=== PATIENT | female | born 1960 | race African-American/Black ===

== ENCOUNTER → 2016-09-28 | Outpatient (CLI) | payer MEDICAID ==
--- NOTE | 2016-09-29 17:26 | XCELERA REPORT ---
[address] [address] Lower Extremity Arterial Evaluation Name: WILLOW BARON Age: 56 yrs Gender: Female : 1960 Patient Status: Outpatient Patient Location: Study Date: 09/28/2016 10:03 AM Procedure: A color flow and duplex scan of the lower extremity arteries was performed bilaterally with velocity and waveform anaylsis. Ankle brachial indicies performed. 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 Biphasic to the infrageniculate vessels. The ankle-brachial index is 0.79. 20-49 % stenosis is noted at the infrageniculate level. Moderately dampened PPG's noted. Left Side Arterial Evaluation Normal velocity, waveform and triphasic flow are present, from the Common Femoral artery to the Anterior Tibial artery. Occluded Posterior Tibial artery, no flow distally. The ankle-brachial index is 1.17. Occluded posterior Tibial artery. Mildly dampened PPG's noted. Interpretation Summary Moderate hemodynamically significant lesions in the right lower extremity only, on duplex imaging, at rest. Mild hemodynamically significant lesions in the left lower extremity only, on duplex imaging, at rest. : JAYDEN JAIME > Delonte Gordon
== END ==
LOC: SP 09:30
PROVIDERS: ATTEND Podiatrist Foot Surgery
DX: I70.25 Atherosclerosis of native arteries of other extremities with ulceration (principal)
CPT/HCPCS: 93925

== ENCOUNTER 2016-09-30 11:41 | Emergency (ER) | payer MEDICAID ==
[2016-09-30] MEDS ORDERED: ONDANSETRON 4 MG TAB.RAPDIS PO ONE (11:52)
--- NOTE | 2016-09-30 11:52 | ER Document Report ---
ED Medical Screen (RME) - General Stated Complaint: VOMITING,LEFT SIDE PAIN Time seen by provider: 11:48 Mode of Arrival: Ambulatory Information source: Patient Notes: 56 yo female presents to ed for vomiting and pain in the left flank for 3 months , arthritis pain with blood sugar of 262 TRAVEL OUTSIDE OF THE [place] IN LAST 30 DAYS: No - HPI Onset: Other - 3 months Onset/Duration: Gradual, Persistent Quality of pain: Sharp Severity: Severe Pain Level: 5 Associated Symptoms: Vomiting, Other - flank pain, arthritis diabetes, and vomiting this am Exacerbated by: Movement, Walking Relieved by: Denies Similar symptoms previously: Yes Recently seen / treated by doctor: Yes - Related Data Smoking: Non-smoker Frequency of alcohol use: None Drug Abuse: None Allergies/Adverse Reactions: codeine [Codeine] Allergy (Verified 07/12/16 11:50) hydromorphone HCl [From Dilaudid] Allergy (Verified 07/12/16 11:50) tramadol HCl [From Ultram] Allergy (Verified 07/12/16 11:50) Past Medical History - Past Medical History Cardiac Medical History: Reports: Hx Heart Attack, Hx Hypercholesterolemia, Hx Hypertension Pulmonary Medical History: Reports: Hx Bronchitis, Hx Pneumonia Denies: Hx Tuberculosis Endocrine Medical History: Reports: Hx Diabetes Mellitus Type 2. Denies: Hx Graves' Disease, Hx Hyperthyroidism, Hx Hypothyroidism Renal/ Medical History: Denies: Hx End Stage Renal Disease, Hx Kidney Stones, Hx Peritoneal Dialysis GI Medical History: Reports: Hx Gastroesophageal Reflux Disease. Denies: Hx Crohn's Disease, Hx Hiatal Hernia, Hx Irritable Bowel, Hx Liver Failure, Hx Ulcer Musculoskeltal Medical History: Reports Hx Arthritis - RA, Denies Hx Fibromyalgia, Denies Hx Muscular Dystrophy Traumatic Medical History: Denies: Hx Fractures Past Surgical History: Reports: Hx Cholecystectomy - 2005, Hx Hysterectomy, Hx Oral Surgery, Hx Tonsillectomy - 1969. Denies: Hx Appendectomy, Hx Bowel Surgery, Hx Section, Hx Colostomy, Hx Coronary Artery Bypass Graft, Hx Gastric Bypass Surgery, Hx Herniorrhaphy, Hx Mastectomy, Hx Pacemaker, Hx Tubal Ligation - Immunizations Immunizations up to date: Yes Hx Diphtheria, Pertussis, Tetanus Vaccination: Yes - 2007? Physical Exam - Vital signs Vitals: Temp Pulse Resp BP Pulse Ox 98.0 F 78 20 140/83 H 100 09/30/16 11:45 09/30/16 11:45 09/30/16 11:45 09/30/16 11:45 09/30/16 11:45 Course - Vital Signs Vital signs: Temp Pulse Resp BP Pulse Ox 98.0 F 78 20 140/83 H 100 09/30/16 11:45 09/30/16 11:45 09/30/16 11:45 09/30/16 11:45 09/30/16 11:45
[2016-09-30 12:28] LABS: ABSOLUTE EOSINOPHILS # (AUTO) 0.3 10^3/uL (0.0-0.6); ABSOLUTE LYMPHOCYTES (AUTO) 2.4 10^3/uL (0.5-4.7); ABSOLUTE MONOCYTES (AUTO) 0.4 10^3/uL (0.1-1.4); ABSOLUTE NEUT (AUTO) 5.6 10^3/uL (1.7-8.2); BASOPHILS % (AUTO) 0.4 % (0-2); HEMATOCRIT 39.3 % (36.0-47.0); HEMOGLOBIN 13.1 g/dL (12.0-15.5); LYMPHOCYTES % (AUTO) 27.3 % (13-45); MEAN CORPUSCULAR HEMOGLOBIN 29.6 pg (27.0-33.4); MEAN CORPUSCULAR HGB CONC 33.5 g/dL (32.0-36.0); MEAN CORPUSCULAR VOLUME 89 fl (80-97); MONOCYTES % (AUTO) 4.8 % (3-13); RED BLOOD COUNT 4.44 10^6/uL (3.72-5.28); RED CELL DISTRIBUTION WIDTH 15.5 % (11.5-14.0); SEGMENTED NEUTROPHILS % (AUTO) 64.5 % (42-78); WHITE BLOOD COUNT 8.6 10^3/uL (4.0-10.5)
[2016-09-30 12:39] LABS: APPEARANCE,URINE SLIGHTLY-CLOUDY; BILIRUBIN,URINE NEGATIVE (NEGATIVE); GLUCOSE, URINE >=500 mg/dL (NEGATIVE); KETONES,URINE 20 mg/dL (NEGATIVE); LEUKOCYTE ESTERASE,URINE NEGATIVE (NEGATIVE); NITRITE,URINE NEGATIVE (NEGATIVE); PROTEIN,URINE 30 mg/dL (NEGATIVE); URINE SPECIFIC GRAVITY 1.023; UROBILINOGEN,URINE NEGATIVE mg/dL (<2.0)
[2016-09-30 12:56] LABS: ALANINE AMINOTRANSFERASE 25 U/L (9-52); ALBUMIN 4.5 g/dL (3.5-5.0); ALKALINE PHOSPHATASE 152 U/L (38-126); ANION GAP 14 (5-19); ASPARTATE AMINO TRANSFERASE 18 U/L (14-36); BILIRUBIN,TOTAL 1.1 mg/dL (0.2-1.3); BLOOD UREA NITROGEN 10 mg/dL (7-20); CALCIUM 10.1 mg/dL (8.4-10.2); CARBON DIOXIDE 22 mmol/L (22-30); CHLORIDE 103 mmol/L (98-107); CREATININE RESULT 0.66 mg/dL (0.52-1.25); GLUCOSE 260 mg/dL (75-110); POTASSIUM 4.9 mmol/L (3.6-5.0); SODIUM 139.2 mmol/L (137-145); TOTAL PROTEIN 8.3 g/dL (6.3-8.2)
[2016-09-30] MEDS ORDERED: MAGNESIUM CITRATE 296 ML BOTTLE PO ONE (13:17)
[2016-09-30 13:51] VITALS: BP 151/74
--- NOTE | 2016-09-30 16:25 | ER Document Report ---
ED General - General Chief Complaint: Flank Pain Stated Complaint: VOMITING,LEFT SIDE PAIN Mode of Arrival: Ambulatory TRAVEL OUTSIDE OF THE [place] IN LAST 30 DAYS: No - HPI Patient complains to provider of: left flank pain constipation Notes: Patient has been in the ER multiple times for multiple visits for left flank pain with recent CAT scans performed showing no critical etiology. Patient states plan pain continues on the day this been ongoing for the last 3 weeks. Patient also states unable have a bowel movement. Patient states took stool softener did have small bowel movement this morning however states she feels like she still needs to go. Denies fevers chills nausea vomiting. - Related Data Allergies/Adverse Reactions: codeine [Codeine] Allergy (Verified 09/30/16 11:49) hydromorphone HCl [From Dilaudid] Allergy (Verified 09/30/16 11:49) tramadol HCl [From Ultram] Allergy (Verified 09/30/16 11:49) Past Medical History - General Information source: Patient - Social History Smoking Status: Never Smoker Chew tobacco use (# tins/day): No Frequency of alcohol use: None Drug Abuse: None Family History: Reviewed & Not Pertinent, CAD, CVA, DM, Hyperlipidemia, Hypertension, Malignancy Patient has suicidal ideation: No Patient has homicidal ideation: No - Past Medical History Cardiac Medical History: Reports: Hx Heart Attack, Hx Hypercholesterolemia, Hx Hypertension Pulmonary Medical History: Reports: Hx Bronchitis, Hx Pneumonia Denies: Hx Tuberculosis Endocrine Medical History: Reports: Hx Diabetes Mellitus Type 2. Denies: Hx Graves' Disease, Hx Hyperthyroidism, Hx Hypothyroidism Renal/ Medical History: Denies: Hx End Stage Renal Disease, Hx Kidney Stones, Hx Peritoneal Dialysis GI Medical History: Reports: Hx Gastroesophageal Reflux Disease. Denies: Hx Crohn's Disease, Hx Hiatal Hernia, Hx Irritable Bowel, Hx Liver Failure, Hx Ulcer Musculoskeltal Medical History: Reports Hx Arthritis - RA, Denies Hx Fibromyalgia, Denies Hx Muscular Dystrophy Traumatic Medical History: Denies: Hx Fractures Past Surgical History: Reports: Hx Cholecystectomy - 2005, Hx Hysterectomy, Hx Oral Surgery, Hx Tonsillectomy - 1969. Denies: Hx Appendectomy, Hx Bowel Surgery, Hx Section, Hx Colostomy, Hx Coronary Artery Bypass Graft, Hx Gastric Bypass Surgery, Hx Herniorrhaphy, Hx Mastectomy, Hx Pacemaker, Hx Tubal Ligation - Immunizations Immunizations up to date: Yes Hx Diphtheria, Pertussis, Tetanus Vaccination: Yes - 2007? Hx Pneumococcal Vaccination: 05/27/12 Review of Systems - Review of Systems Constitutional: No symptoms reported EENT: No symptoms reported Cardiovascular: No symptoms reported Respiratory: No symptoms reported Gastrointestinal: No symptoms reported Genitourinary: Flank pain Female Genitourinary: No symptoms reported Musculoskeletal: No symptoms reported Skin: No symptoms reported Hematologic/Lymphatic: No symptoms reported Neurological/Psychological: No symptoms reported -: Yes All other systems reviewed and negative Physical Exam - Vital signs Vitals: Temp Pulse Resp BP Pulse Ox 98.0 F 78 20 140/83 H 100 09/30/16 11:45 09/30/16 11:45 09/30/16 11:45 09/30/16 11:45 09/30/16 11:45 Interpretation: Normal - General General appearance: Appears well, Alert - HEENT Head: Normocephalic, Atraumatic Eyes: Normal Pupils: PERRL - Respiratory Respiratory status: No respiratory distress Chest status: Nontender Breath sounds: Normal Chest palpation: Normal - Cardiovascular Rhythm: Regular Heart sounds: Normal auscultation Murmur: No - Abdominal Inspection: Normal Distension: No distension Bowel sounds: Normal Tenderness: Nontender Organomegaly: No organomegaly - Back Back: Normal, Nontender - Extremities General upper extremity: Normal inspection, Nontender, Normal color, Normal ROM , Normal temperature General lower extremity: Normal inspection, Nontender, Normal color, Normal ROM , Normal temperature, Normal weight bearing. No: Nohelia's sign - Neurological Neuro grossly intact: Yes Cognition: Normal Orientation: AAOx4 [place] Coma Scale Eye Opening: Spontaneous [place] Coma Scale Verbal: Oriented [place] Coma Scale Motor: Obeys Commands [place] Coma Scale Total: 15 Speech: Normal Motor strength normal: LUE, RUE, LLE, RLE Sensory: Normal - Psychological Associated symptoms: Normal affect, Normal mood - Skin Skin Temperature: Warm Skin Moisture: Dry Skin Color: Normal Course - Re-evaluation Re-evalutation: 09/30/16 16:[address] scans were reviewed laboratory shows no critical etiology will give the patient a bottle of mag citrate patient will be discharged home. - Vital Signs Vital signs: Temp Pulse Resp BP Pulse Ox 98.0 F 78 20 140/83 H 100 09/30/16 11:45 09/30/16 11:45 09/30/16 11:45 09/30/16 11:45 09/30/16 11:45 - Laboratory Result Diagrams: 09/30/16 12:00 09/30/16 12:00 Laboratory results interpreted by me: 09/30/16 09/30/16 09/30/16 12:00 12:00 12:00 RDW 15.5 H Glucose 260 H Alkaline Phosphatase 152 H Total Protein 8.3 H Urine Protein 30 H Urine Glucose (UA) >=500 H Urine Ketones 20 H Urine Ascorbic Acid 20 H Discharge - Discharge Clinical Impression: Left sided abdominal pain, Nausea Constipation Qualifiers: Constipation type: unspecified constipation type Qualified Code(s): K59.00 - Constipation, unspecified Condition: Good Disposition: HOME, SELF-CARE Instructions: Abdominal Pain ([facility]), Constipation ([facility]), Nausea or Vomiting, Nonspecific ([facility]) Additional Instructions: Follow-up with your primary care physician. Please drink the bottle of mag citrate that we gave you here today to relieve her constipation. Prescriptions: Ondansetron [Zofran Odt 4 mg Tablet] 1 - 2 tab PO Q4H PRN #15 tab.rapdis PRN Reason: For Nausea/Vomiting
== END 2016-09-30 13:49 | disposition home or self-care (01) ==
LOC: ER 11:41
DX: K59.00 Constipation, unspecified (principal); R11.0 Nausea; R10.9 Unspecified abdominal pain; E78.00 Pure hypercholesterolemia, unspecified; I10 Essential (primary) hypertension; E11.9 Type 2 diabetes mellitus without complications; K21.9 Gastro-esophageal reflux disease without esophagitis; Z88.6 Allergy status to analgesic agent; Z90.49 Acquired absence of other specified parts of digestive tract; Z90.710 Acquired absence of both cervix and uterus; I25.2 Old myocardial infarction
CPT/HCPCS: 99284; 36415; 85025; 80053; 81001; J3490; S0119

== ENCOUNTER 2017-04-22 09:47 | Emergency (ER) | payer MEDICAID ==
[2017-04-22] MEDS ORDERED: ASPIRIN 81 MG TABLET, CHEWABLE PO ONE ×2 (10:21→12:00)
[2017-04-22 11:16] LABS: ABSOLUTE BASOPHILS # (AUTO) 0.1 10^3/uL (0.0-0.2); ABSOLUTE EOSINOPHILS # (AUTO) 0.3 10^3/uL (0.0-0.6); ABSOLUTE LYMPHOCYTES (AUTO) 3.5 10^3/uL (0.5-4.7); ABSOLUTE MONOCYTES (AUTO) 0.6 10^3/uL (0.1-1.4); ABSOLUTE NEUT (AUTO) 7.5 10^3/uL (1.7-8.2); BASOPHILS % (AUTO) 0.9 % (0-2); EOSINOPHILS % (AUTO) 2.4 % (0-6); HEMATOCRIT 37.1 % (36.0-47.0); HGB HCT DIFFERENCE -1.1; LYMPHOCYTES % (AUTO) 29.3 % (13-45); MEAN CORPUSCULAR HEMOGLOBIN 30.5 pg (27.0-33.4); MEAN CORPUSCULAR HGB CONC 32.3 g/dL (32.0-36.0); MEAN CORPUSCULAR VOLUME 94 fl (80-97); MONOCYTES % (AUTO) 4.7 % (3-13); RED BLOOD COUNT 3.93 10^6/uL (3.72-5.28); RED CELL DISTRIBUTION WIDTH 15.2 % (11.5-14.0); SEGMENTED NEUTROPHILS % (AUTO) 62.7 % (42-78)
[2017-04-22 11:27] LABS: ALANINE AMINOTRANSFERASE 20 U/L (9-52); ALBUMIN 4.5 g/dL (3.5-5.0); ALKALINE PHOSPHATASE 157 U/L (38-126); ANION GAP 12 (5-19); ASPARTATE AMINO TRANSFERASE 28 U/L (14-36); BILIRUBIN,DIRECT 0.4 mg/dL (0.0-0.4); BILIRUBIN,TOTAL 0.9 mg/dL (0.2-1.3); BLOOD UREA NITROGEN 14 mg/dL (7-20); CALCIUM 10.2 mg/dL (8.4-10.2); CARBON DIOXIDE 27 mmol/L (22-30); CHLORIDE 104 mmol/L (98-107); CREATINE KINASE 40 U/L (30-135); GLUCOSE 174 mg/dL (75-110); POTASSIUM 4.6 mmol/L (3.6-5.0); SODIUM 142.5 mmol/L (137-145); TOTAL PROTEIN 8.9 g/dL (6.3-8.2)
--- NOTE | 2017-04-22 11:34 | RADIOLOGY REPORT (SQ) ---
EXAM DESCRIPTION: CHEST SINGLE VIEW COMPLETED DATE/TIME: 04/22/2017 11:26 am REASON FOR STUDY: CHEST PAIN COMPARISON: 07/12/2016. EXAM PARAMETERS: NUMBER OF VIEWS: One view. TECHNIQUE: Single frontal radiographic view of the chest acquired. RADIATION DOSE: NA LIMITATIONS: None. FINDINGS: LUNGS AND PLEURA: No opacities, masses or pneumothorax. No pleural effusion. MEDIASTINUM AND HILAR STRUCTURES: No masses. Contour normal. HEART AND VASCULAR STRUCTURES: Heart normal in size. Normal vasculature. BONES: No acute findings. HARDWARE: Clips in the upper abdomen. OTHER: No other significant finding. IMPRESSION: NO ACUTE RADIOGRAPHIC FINDING IN THE CHEST. TECHNICAL DOCUMENTATION: JOB ID: [id number]
[2017-04-22 11:40] LABS: TROPONIN I < 0.012 ng/mL
--- NOTE | 2017-04-22 11:50 | ER Document Report ---
ED General - General Chief Complaint: Chest Pain Stated Complaint: CHEST PAIN Time Seen by Provider: 04/22/17 11:25 Mode of Arrival: Ambulatory Information source: Patient TRAVEL OUTSIDE OF THE [place] IN LAST 30 DAYS: No - HPI Patient complains to provider of: Fleeting chest pain, dry mouth, cough Onset: This morning Onset/Duration: Sudden Quality of pain: Other - Wheezing Severity: Moderate Pain Level: Denies Associated symptoms: Nonproductive cough Exacerbated by: Denies Relieved by: Denies Similar symptoms previously: No Recently seen / treated by doctor: No Notes: Patient is a 57-year-old female with multiple medical problems, who presents to the emergency room complaining of episode of squeezing type chest pain upon awakening this morning lasting approximately 1 minute, she reports a non- productive cough and a dry mouth, no fever, no shortness of breath, no symptoms at present - Related Data Allergies/Adverse Reactions: chocolate flavor Allergy (Verified 04/22/17 09:54) codeine [Codeine] Allergy (Verified 04/22/17 09:54) hydromorphone HCl [From Dilaudid] Allergy (Verified 04/22/17 09:54) tramadol HCl [From Ultram] Allergy (Verified 04/22/17 09:54) Home Medications: Current Home Medications Alendronate Sodium [Fosamax] 70 mg PO ASDIR PRN 04/22/17 [History] Amlodipine Besylate 1 tab PO DAILY 04/22/17 [History] Atorvastatin Calcium 20 mg PO DAILY 04/22/17 [History] Carvedilol [Coreg 25 mg Tablet] 1 tab PO Q12 04/22/17 [History] Celecoxib [Celebrex 200 mg Capsule] 200 mg PO BID 04/22/17 [History] Cetirizine HCl [Zyrtec 10 mg Tablet] 1 tab PO DAILY 04/22/17 [History] Metformin HCl [Metformin HCl ER] 500 mg PO BID 04/22/17 [History] Methotrexate Sodium [Methotrexate] 8 tab PO ASDIR 04/22/17 [History] Oxybutynin Chloride [Ditropan 5 Mg Tablet] 5 mg PO BID 04/22/17 [History] Past Medical History - General Information source: Patient - Social History Smoking Status: Never Smoker Family History: Reviewed & Not Pertinent, CAD, CVA, DM, Hyperlipidemia, Hypertension, Malignancy - Past Medical History Cardiac Medical History: Reports: Hx Heart Attack, Hx Hypercholesterolemia, Hx Hypertension Pulmonary Medical History: Reports: Hx Bronchitis, Hx Pneumonia Denies: Hx Tuberculosis Endocrine Medical History: Reports: Hx Diabetes Mellitus Type 2. Denies: Hx Graves' Disease, Hx Hyperthyroidism, Hx Hypothyroidism Renal/ Medical History: Denies: Hx End Stage Renal Disease, Hx Kidney Stones, Hx Peritoneal Dialysis GI Medical History: Reports: Hx Gastroesophageal Reflux Disease. Denies: Hx Crohn's Disease, Hx Hiatal Hernia, Hx Irritable Bowel, Hx Liver Failure, Hx Ulcer Musculoskeltal Medical History: Reports Hx Arthritis - RA, Denies Hx Fibromyalgia, Denies Hx Muscular Dystrophy Traumatic Medical History: Denies: Hx Fractures Past Surgical History: Reports: Hx Cholecystectomy - 2005, Hx Hysterectomy, Hx Oral Surgery, Hx Tonsillectomy - 1969. Denies: Hx Appendectomy, Hx Bowel Surgery, Hx Section, Hx Colostomy, Hx Coronary Artery Bypass Graft, Hx Gastric Bypass Surgery, Hx Herniorrhaphy, Hx Mastectomy, Hx Pacemaker, Hx Tubal Ligation - Immunizations Immunizations up to date: Yes Hx Diphtheria, Pertussis, Tetanus Vaccination: Yes - 2007? Hx Pneumococcal Vaccination: 05/27/12 Review of Systems - Review of Systems Constitutional: No symptoms reported EENT: See HPI Cardiovascular: See HPI Respiratory: See HPI Gastrointestinal: No symptoms reported Genitourinary: No symptoms reported Female Genitourinary: No symptoms reported Musculoskeletal: No symptoms reported Skin: No symptoms reported Hematologic/Lymphatic: No symptoms reported Neurological/Psychological: No symptoms reported -: Yes All other systems reviewed and negative Physical Exam - Vital signs Vitals: Temp Pulse Resp BP Pulse Ox 98.6 F 62 18 163/79 H 99 04/22/17 09:54 04/22/17 09:54 04/22/17 09:54 04/22/17 09:54 04/22/17 09:54 Interpretation: Hypertensive - General General appearance: Appears well, Alert - HEENT Head: Normocephalic, Atraumatic Eyes: Normal Pupils: PERRL - Respiratory Respiratory status: No respiratory distress Chest status: Tender - Tender to palpate in left anterior chest wall Breath sounds: Normal Chest palpation: Normal - Cardiovascular Rhythm: Regular Heart sounds: Normal auscultation Murmur: No - Abdominal Inspection: Normal Distension: No distension Bowel sounds: Normal Tenderness: Nontender Organomegaly: No organomegaly - Back Back: Normal, Nontender - Extremities General upper extremity: Normal inspection, Nontender, Normal color, Normal ROM , Normal temperature General lower extremity: Normal inspection, Nontender, Normal color, Normal ROM , Normal temperature, Normal weight bearing. No: Nohelia's sign - Neurological Neuro grossly intact: Yes Cognition: Normal Orientation: AAOx4 Jerrica Coma Scale Eye Opening: Spontaneous [place] Coma Scale Verbal: Oriented [place] Coma Scale Motor: Obeys Commands [place] Coma Scale Total: 15 Speech: Normal Motor strength normal: LUE, RUE, LLE, RLE Sensory: Normal - Psychological Associated symptoms: Normal affect, Normal mood - Skin Skin Temperature: Warm Skin Moisture: Dry Skin Color: Normal Course - Re-evaluation Re-evalutation: 04/22/17 19:29 Patient's chest pain was fleeting, lasting only 1 minute when she initially woke up this morning and she has not had chest pain since, evaluation in the emergency room is unremarkable except for elevated blood pressure, she confirms that she recently had a change in her medication, her primary care provider dropped her lisinopril from 40 mg a day to 20 mg a day because her blood pressure was a little on the lower side, since she had markedly elevated blood pressure in the emergency room she was advised to bump her lisinopril back up to 40 mg daily and was given a prescription for this as well, she was advised to follow-up with her primary care provider or return if symptoms worsen, patient acknowledges understanding and agreement with this plan - Vital Signs Vital signs: Temp Pulse Resp BP Pulse Ox 98.6 F 62 18 196/98 H 98 04/22/17 09:54 04/22/17 09:54 04/22/17 13:37 04/22/17 13:37 04/22/17 13:37 - Laboratory Result Diagrams: 04/22/17 10:55 04/22/17 10:55 Laboratory results interpreted by me: 04/22/17 04/22/17 10:55 10:55 WBC 12.0 H RDW 15.2 H Glucose 174 H Alkaline Phosphatase 157 H Total Protein 8.9 H - Diagnostic Test Radiology reviewed: Image reviewed, Reports reviewed - EKG Interpretation by Me EKG shows normal: Sinus rhythm Rate: Bradycardia Voltage: Consistant with LVH Discharge - Discharge Clinical Impression: Chest pain Qualifiers: Chest pain type: unspecified Qualified Code(s): R07.9 - Chest pain, unspecified Hypertension Qualifiers: Hypertension type: unspecified Qualified Code(s): I10 - Essential (primary) hypertension Condition: Stable Disposition: HOME, SELF-CARE Instructions: Chest Pain of Unclear Cause ([facility]) Additional Instructions: Follow up with your primary care provider in one to 2 days. Return to the emergency room immediately if symptoms worsen or any additional concerns. Prescriptions: Lisinopril 40 mg PO DAILY #60 tablet Forms: Elevated Blood Pressure Referrals: NUHA FIGUEROA MD [Primary Care Provider] - Follow up as needed
--- NOTE | 2017-04-22 12:18 | EKG REPORT ---
SEVERITY:- ABNORMAL ECG - SINUS RHYTHM PROBABLE LEFT ATRIAL ABNORMALITY PROBABLE LEFT VENTRICULAR HYPERTROPHY : Confirmed by: Chanelle Walker MD 22-Apr-2017 12:17:48
[2017-04-22] MEDS ORDERED: LISINOPRIL 10 MG TABLET PO ONE (13:38)
[2017-04-22 13:45] VITALS: BP 196/98
[2017-04-22] MEDS ORDERED: CLONIDINE HCL 0.2 MG TABLET PO ONE (14:57)
== END 2017-04-22 16:15 | disposition home or self-care (01) ==
LOC: ER 09:47
DX: R07.9 Chest pain, unspecified (principal); I10 Essential (primary) hypertension; Z79.899 Other long term (current) drug therapy; R05 Cough; R68.2 Dry mouth, unspecified; R00.1 Bradycardia, unspecified; E11.9 Type 2 diabetes mellitus without complications; I25.2 Old myocardial infarction; Z88.5 Allergy status to narcotic agent; Z91.018 Allergy to other foods; Z82.49 Family history of ischemic heart disease and other diseases of the circulatory system
CPT/HCPCS: 93005; 99285; 36415; 82553; 82550; 85025; 80053; 84484; 71010; 93010; J3490 ×2

== ENCOUNTER 2017-04-27 22:05 | Emergency (ER) | payer MEDICAID ==
[2017-04-27] MEDS ORDERED: ASPIRIN 81 MG TABLET, CHEWABLE PO ONE (22:23)
[2017-04-27 22:30] LABS: ABSOLUTE BASOPHILS # (AUTO) 0.1 10^3/uL (0.0-0.2); ABSOLUTE EOSINOPHILS # (AUTO) 0.3 10^3/uL (0.0-0.6); ABSOLUTE LYMPHOCYTES (AUTO) 5.2 10^3/uL (0.5-4.7); ABSOLUTE MONOCYTES (AUTO) 0.8 10^3/uL (0.1-1.4); BASOPHILS % (AUTO) 0.9 % (0-2); EOSINOPHILS % (AUTO) 1.8 % (0-6); HEMATOCRIT 35.8 % (36.0-47.0); HEMOGLOBIN 11.8 g/dL (12.0-15.5); HGB HCT DIFFERENCE -0.4; LYMPHOCYTES % (AUTO) 33.8 % (13-45); MEAN CORPUSCULAR HEMOGLOBIN 31.2 pg (27.0-33.4); MEAN CORPUSCULAR HGB CONC 33.1 g/dL (32.0-36.0); MEAN CORPUSCULAR VOLUME 94 fl (80-97); MONOCYTES % (AUTO) 5.1 % (3-13); RED BLOOD COUNT 3.79 10^6/uL (3.72-5.28); RED CELL DISTRIBUTION WIDTH 15.3 % (11.5-14.0); SEGMENTED NEUTROPHILS % (AUTO) 58.4 % (42-78); WHITE BLOOD COUNT 15.3 10^3/uL (4.0-10.5)
--- NOTE | 2017-04-27 22:42 | ER Document Report ---
ED General - General Chief Complaint: Chest Pain Stated Complaint: CHEST PAIN Time Seen by Provider: 04/27/17 22:38 Notes: Patient is a 57-year-old female presents with complaint of pain along her left ribs. Patient was seen here approximately 5 days ago for similar complaint. Troponin and delta troponin were negative at that time. Pain is easily reproducible palpation. She was discharged home. She does have a history of arthritis and receives and fusions of the special medication for her arthritis. She says the last few days the pain is gotten worse. She said any movement causes severe pain. No history of PE or DVT. She says she does have a history of ID in 2011 but did not receive a cardiac cath. She had a negative cardiac stress test in 2013. She has no other complaints at this time. She denies abdominal pain. No vomiting. TRAVEL OUTSIDE OF THE [place] IN LAST 30 DAYS: No - Related Data Allergies/Adverse Reactions: chocolate flavor Allergy (Verified 04/22/17 09:54) codeine [Codeine] Allergy (Verified 04/22/17 09:54) hydromorphone HCl [From Dilaudid] Allergy (Verified 04/22/17 09:54) tramadol HCl [From Ultram] Allergy (Verified 04/22/17 09:54) Past Medical History - Social History Smoking Status: Unknown if Ever Smoked Frequency of alcohol use: None Drug Abuse: None Family History: Reviewed & Not Pertinent, CAD, CVA, DM, Hyperlipidemia, Hypertension, Malignancy - Past Medical History Cardiac Medical History: Reports: Hx Heart Attack, Hx Hypercholesterolemia, Hx Hypertension Pulmonary Medical History: Reports: Hx Bronchitis, Hx Pneumonia Denies: Hx Tuberculosis Endocrine Medical History: Reports: Hx Diabetes Mellitus Type 2. Denies: Hx Graves' Disease, Hx Hyperthyroidism, Hx Hypothyroidism Renal/ Medical History: Denies: Hx End Stage Renal Disease, Hx Kidney Stones, Hx Peritoneal Dialysis GI Medical History: Reports: Hx Gastroesophageal Reflux Disease. Denies: Hx Crohn's Disease, Hx Hiatal Hernia, Hx Irritable Bowel, Hx Liver Failure, Hx Ulcer Musculoskeltal Medical History: Reports Hx Arthritis - RA, Denies Hx Fibromyalgia, Denies Hx Muscular Dystrophy Traumatic Medical History: Denies: Hx Fractures Past Surgical History: Reports: Hx Cholecystectomy - 2005, Hx Hysterectomy, Hx Oral Surgery, Hx Tonsillectomy - 1969. Denies: Hx Appendectomy, Hx Bowel Surgery, Hx Section, Hx Colostomy, Hx Coronary Artery Bypass Graft, Hx Gastric Bypass Surgery, Hx Herniorrhaphy, Hx Mastectomy, Hx Pacemaker, Hx Tubal Ligation - Immunizations Immunizations up to date: Yes Hx Diphtheria, Pertussis, Tetanus Vaccination: Yes - 2007? Hx Pneumococcal Vaccination: 05/27/12 Review of Systems - Review of Systems Notes: My Normal Review Basic REVIEW OF SYSTEMS: CONSTITUTIONAL : Denies fever, chills, or sweats. Denies recent illness. EENT: Denies eye, ear, throat, or mouth pain or symptoms. Denies nasal or sinus congestion. CARDIOVASCULAR: Left rib pain. RESPIRATORY: Denies cough, cold, or chest congestion. Denies shortness of breath, difficulty breathing, or wheezing. GASTROINTESTINAL: Denies abdominal pain. Denies nausea, vomiting, or diarrhea. Denies constipation. Last BM: MUSCULOSKELETAL: Denies neck or back pain or joint pain or swelling. SKIN: Denies rash or skin lesions. NEUROLOGICAL: Denies altered mental status or loss of consciousness. Denies headache. Denies weakness or paralysis or loss of use of either side. Denies problems with gait or speech. Denies sensory or motor loss. ALL OTHER SYSTEMS REVIEWED AND NEGATIVE. Physical Exam - Vital signs Vitals: Resp Pulse Ox 16 98 04/27/17 22:17 04/27/17 22:17 - Notes Notes: General Appearance: Well nourished, alert, cooperative, no acute distress, no obvious discomfort. Vitals: reviewed, See vital signs table. Head: no swelling or tenderness to the head Eyes: PERRL, EOMI, Conjuctiva clear Mouth: No decreasd moisture Neck: Supple, no neck tenderness Chest wall: Patient has very easily reproducible pain to palpation with palpation of the left chest wall. Pain is mainly in the left lateral ribs and radiates around the ribs both to the back and around to the front. Even a mild touch causes patient to jump and wince with pain. Without touching or pushing on the ribs she is not having significant pain. Lungs: No wheezing, No rales, No rhonci, No accessory muscle use, good air exchange bilaterally. Heart: Normal rate, Regular rythm, No murmur, no rub Abdomen: Normal BS, soft, No rigidity, No abdominal tenderness, No guarding, no rebound, no abdominal masses, no organomegaly Extremities: strength 5/5 in all extremities, good pulses in all extremities, no swelling or tenderness in the extremities, no edema. Skin: warm, dry, appropriate color, no rash Neuro: speech clear, oriented x 3, normal affect, responds appropriately to questions. Course - Re-evaluation Re-evalutation: 04/28/17 03:40 Patient's chest wall is very tender to palpation and the pain I produced with palpation the exact same pain that the patient's been having. The pain seems very musculoskeletal. I encouraged her follow-up with her roll mechanic due to her history of severe arthritis. I do not suspect cardiac disease. She has had the pain now for almost a week. She had a negative troponin delta troponin V days ago. She has a negative troponin again today. EKG does not show any concerning findings. Patient will be discharged home but is encouraged to return to ER if she feels unwell or has further concerns. Patient agrees with plan will be discharged home. Dictation of this chart was performed using voice recognition software; therefore, there may be some unintended grammatical errors. - Vital Signs Vital signs: Temp Pulse Resp BP Pulse Ox 16 142/72 H 99 04/28/17 00:02 04/28/17 00:02 04/28/17 00:02 - Laboratory Result Diagrams: 04/27/17 22:10 04/27/17 23:13 Laboratory results interpreted by me: 04/27/17 04/27/17 22:10 23:13 WBC 15.3 H Hgb 11.8 L Hct 35.8 L RDW 15.3 H Absolute Neutrophils 9.0 H Absolute Lymphocytes 5.2 H Glucose 124 H Alkaline Phosphatase 149 H - EKG Interpretation by Me Additional EKG results interpreted by me: 04/27/17 22:41 EKG is reviewed and interpreted by me. EKG shows normal sinus rhythm with a rate of [address] segment elevation or depression. No ischemic T-wave inversions. IA interval, QRS duration, QTc intervals are within normal range. Old EKG for comparison is from April 22, 2017. Discharge - Discharge Clinical Impression: Rib pain on left side Condition: Good Disposition: HOME, SELF-CARE Additional Instructions: Your EKG and heart enzymes are normal. Your pain is very easily reproduced with movement and with palpation over the ribs. This suggests that the pain is more due to inflammation around the ribs. please follow up with your primary care doctor and roll mechanic closely for reevaluation. please return to the ER if you have fevers, difficulty breathing, vomiting, or feel unwell. Prescriptions: Naproxen [Naprosyn 250 mg Tablet] 250 mg PO BID #14 tablet
--- NOTE | 2017-04-27 22:47 | RADIOLOGY REPORT (SQ) ---
EXAM DESCRIPTION: CHEST SINGLE VIEW COMPLETED DATE/TIME: 04/27/2017 10:35 pm REASON FOR STUDY: chest pain COMPARISON: 04/22/2017 NUMBER OF VIEWS: One view. TECHNIQUE: Single frontal radiographic view of the chest acquired. LIMITATIONS: None. FINDINGS: LUNGS AND PLEURA: No opacities, masses or pneumothorax. No pleural effusion. MEDIASTINUM AND HILAR STRUCTURES: No masses. Contour normal. HEART AND VASCULAR STRUCTURES: Heart enlarged without failure. Normal vasculature. BONES: No acute findings. HARDWARE: None in the chest. OTHER: No other significant finding. IMPRESSION: HEART ENLARGED WITHOUT FAILURE. NO OTHER SIGNIFICANT RADIOGRAPHIC FINDING IN THE CHEST. TECHNICAL DOCUMENTATION: JOB ID: [id number] [employer]- All Rights Reserved
[2017-04-27 23:35] LABS: ALANINE AMINOTRANSFERASE 23 U/L (9-52); ALBUMIN 4.1 g/dL (3.5-5.0); ALKALINE PHOSPHATASE 149 U/L (38-126); ANION GAP 13 (5-19); ASPARTATE AMINO TRANSFERASE 14 U/L (14-36); BILIRUBIN,DIRECT 0.3 mg/dL (0.0-0.4); BILIRUBIN,TOTAL 0.6 mg/dL (0.2-1.3); BLOOD UREA NITROGEN 14 mg/dL (7-20); CARBON DIOXIDE 22 mmol/L (22-30); CHLORIDE 105 mmol/L (98-107); CREATININE RESULT 0.69 mg/dL (0.52-1.25); GLUCOSE 124 mg/dL (75-110); POTASSIUM 4.1 mmol/L (3.6-5.0); SODIUM 139.5 mmol/L (137-145); TOTAL PROTEIN 7.8 g/dL (6.3-8.2)
[2017-04-28] MEDS ORDERED: NAPROXEN 250 MG TABLET PO ONE (00:05)
[2017-04-28 00:18] VITALS: BP 142/72
--- NOTE | 2017-04-28 08:13 | EKG REPORT ---
SEVERITY:- NORMAL ECG - SINUS RHYTHM : Confirmed by: Den Regan MD 28-Apr-2017 08:11:45
== END 2017-04-28 00:42 | disposition home or self-care (01) ==
LOC: ER 22:05
DX: R07.81 Pleurodynia (principal); M06.9 Rheumatoid arthritis, unspecified; Z79.899 Other long term (current) drug therapy; I25.2 Old myocardial infarction; I10 Essential (primary) hypertension; E11.9 Type 2 diabetes mellitus without complications; Z91.048 Other nonmedicinal substance allergy status; Z88.5 Allergy status to narcotic agent; Z82.49 Family history of ischemic heart disease and other diseases of the circulatory system
CPT/HCPCS: 36415; 71010; 80053; 84484; 85025; 93005; 93010; 99285

== ENCOUNTER 2017-05-28 03:22 | Emergency (ER) | payer MEDICAID ==
--- NOTE | 2017-05-28 04:12 | ER Document Report ---
ED Respiratory Problem - General Mode of Arrival: Ambulatory Information source: Patient TRAVEL OUTSIDE OF THE [place] IN LAST 30 DAYS: No - HPI Patient complains to provider of: Cough - General Chief Complaint: Productive Cough Stated Complaint: SORE THROAT Time Seen by Provider: 05/28/17 03:30 Notes: Patient is a 57-year-old female who presents to the emergency department today with complaints of a cough prior to arrival. Patient states she was sleeping soundly, she rolled over to find a "comfortable spot in the bed" when she developed a cough with sputum so she decided to come be evaluated. Patient states she frequently has a cough and this is nothing new for her. (MIKKI LEWIS) - Related Data Allergies/Adverse Reactions: chocolate flavor Allergy (Verified 04/22/17 09:54) codeine [Codeine] Allergy (Verified 04/22/17 09:54) hydromorphone HCl [From Dilaudid] Allergy (Verified 04/22/17 09:54) tramadol HCl [From Ultram] Allergy (Verified 04/22/17 09:54) Past Medical History - General Information source: Patient - Social History Smoking Status: Never Smoker Cigarette use (# per day): No Frequency of alcohol use: None Drug Abuse: None Lives with: Family Family History: Reviewed & Not Pertinent, CAD, CVA, DM, Hyperlipidemia, Hypertension, Malignancy - Past Medical History Cardiac Medical History: Reports: Hx Heart Attack, Hx Hypercholesterolemia, Hx Hypertension Pulmonary Medical History: Reports: Hx Bronchitis, Hx Pneumonia Endocrine Medical History: Reports: Hx Diabetes Mellitus Type 2 GI Medical History: Reports: Hx Gastroesophageal Reflux Disease Musculoskeltal Medical History: Reports Hx Arthritis - RA Past Surgical History: Reports: Hx Cholecystectomy - 2005, Hx Hysterectomy, Hx Oral Surgery, Hx Tonsillectomy - 1969 - Immunizations Immunizations up to date: Yes Hx Diphtheria, Pertussis, Tetanus Vaccination: Yes - 2007? Hx Pneumococcal Vaccination: 05/27/12 Review of Systems - Review of Systems Constitutional: denies: Fever EENT: No symptoms reported Cardiovascular: No symptoms reported Respiratory: See HPI, Cough, Sputum Gastrointestinal: No symptoms reported Genitourinary: No symptoms reported Female Genitourinary: No symptoms reported Musculoskeletal: No symptoms reported Skin: No symptoms reported Hematologic/Lymphatic: No symptoms reported Neurological/Psychological: No symptoms reported -: Yes All other systems reviewed and negative Physical Exam - Vital signs Vitals: Temp Resp BP Pulse Ox 99.6 F 15 138/76 H 98 05/28/17 03:31 05/28/17 03:31 05/28/17 03:31 05/28/17 03:31 - Notes Notes: Physical Exam: General: Alert, appears well. HEENT: Normocephalic. Atraumatic. PERRL. Extraocular movements intact. Oropharynx clear. Neck: Supple. Non-tender. Respiratory: No respiratory distress. Clear and equal breath sounds bilaterally. Cardiovascular: Regular rate and rhythm. Abdominal: Normal Inspection. Non-tender. No distension. Normal Bowel Sounds. Back: Non-tender. No deformity or step off. Extremities: Moves all four extremities. Upper extremities: Normal inspection. Normal ROM. Lower extremities: Normal inspection. No edema. Normal ROM. Neurological: Normal cognition. AAOx4. Normal speech. Psychological: Normal affect. Normal Mood. Skin: Warm. Dry. Normal color. (MIKKI LEWIS) Course - Re-evaluation Re-evalutation: 05/28/17 06:06 Patient presents to the emergency department via EMS with a chief complaint of sore throat and cough. She said she was having trouble getting comfortable in bed she rolled over and began coughing some phlegm came up that she had vomited a little bit. She called EMS on ED arrival she complains of nothing acute. Maybe a little tickle in her throat she does not have any chest pain or pressure she is not short of breath. Vital signs are stable and nonacute. On examination she is well-appearing nontoxic in no distress. HEENT exam is completely normal trachea is midline neck is supple heart rate and rhythm is regular lungs are clear abdomen is soft no peripheral edema or neurological deficits. Strep test is negative. Patient will be discharged home close follow -up with primary care physician and discussed reasons for ED return sooner 05/28/17 06:26 (KADIE DAVE) - Vital Signs Vital signs: Temp Pulse Resp BP Pulse Ox 99.0 F 15 127/79 H 99 05/28/17 06:37 05/28/17 06:02 05/28/17 06:02 05/28/17 06:02 Discharge - Discharge Clinical Impression: Pharyngitis Condition: Stable Disposition: HOME, SELF-CARE Additional Instructions: Sore Throat Sore throats may be caused by viruses, bacteria, or fungi. Most are due to a virus, and must get better on their own. Bacterial sore throats, particularly those due to "strep," need treatment with antibiotics. If an antibiotic is prescribed, be sure to take the medication for a full 10 days. Failure to take the antibiotic can result in complications such as rheumatic fever. Sometimes, an injection of antibiotics is given instead of pills or liquid. This single "shot" is equal in effectiveness to the oral medication. To relieve symptoms, take acetaminophen for pain. Sip clear liquids frequently, or eat popsicles or ice chips. Anesthetic sprays or lozenges may help. Make sure the air in the room is not too dry. Avoid using decongestants or antihistamines. Call the doctor if there is no improvement in two days, or if you have difficulty breathing, increasing throat pain, high fever, rash, or frequent vomiting. Referrals: AUGUSTIN HOFFMAN MD [Primary Care Provider] - Follow up in 3-5 days Scribe Attestation: 05/28/17 06:28 I personally performed the services described in the documentation reviewed the documentation recorded by my scribe in my presence and it accurately and completely records my words and actions (KADIE DAVE) Scribe Documentation - Scribe Written by Trip:: Trip Isaac, 05/28/2017 0537 acting as scribe for :: Isma
[2017-05-28 06:15] VITALS: BP 127/79
[2017-05-28] MEDS ORDERED: ACETAMINOPHEN 325 MG TABLET PO ONE (06:36)
--- NOTE | 2017-05-28 06:39 | RADIOLOGY REPORT (SQ) ---
EXAM DESCRIPTION: CHEST SINGLE VIEW COMPLETED DATE/TIME: 05/28/2017 6:25 am REASON FOR STUDY: cough COMPARISON: Chest x-ray 04/27/2017. EXAM PARAMETERS: NUMBER OF VIEWS: One view. TECHNIQUE: Single frontal radiographic view of the chest acquired. RADIATION DOSE: NA LIMITATIONS: None. FINDINGS: LUNGS AND PLEURA: No consolidation, pneumothorax or pleural effusion. MEDIASTINUM AND HILAR STRUCTURES: No masses. Contour normal. HEART AND VASCULAR STRUCTURES: The heart remains mildly enlarged. No overt vascular congestion. BONES: No acute findings. HARDWARE: None in the chest. IMPRESSION: Stable mild cardiomegaly. Otherwise, no acute radiographic finding in the chest. TECHNICAL DOCUMENTATION: JOB ID: [id number]
== END 2017-05-28 06:20 | disposition home or self-care (01) ==
LOC: ER 03:22
DX: J02.9 Acute pharyngitis, unspecified (principal); R05 Cough; E78.00 Pure hypercholesterolemia, unspecified; I10 Essential (primary) hypertension; E11.9 Type 2 diabetes mellitus without complications; K21.9 Gastro-esophageal reflux disease without esophagitis; I25.2 Old myocardial infarction; Z88.6 Allergy status to analgesic agent; Z90.710 Acquired absence of both cervix and uterus; Z90.49 Acquired absence of other specified parts of digestive tract
CPT/HCPCS: 99284; 87070; 87880; 71010; J3490

== ENCOUNTER 2018-01-14 10:02 | Emergency (ER) | payer MEDICAID ==
--- NOTE | 2018-01-14 10:16 | ER Document Report ---
ED Medical Screen (RME) - General Mode of Arrival: Ambulatory Information source: Patient TRAVEL OUTSIDE OF THE [place] IN LAST 30 DAYS: No <SHIN PARKER - Last Filed: 01/14/18 10:16> <FARRAH GARCIA - Last Filed: 01/14/18 11:23> - General Chief Complaint: Abdominal Pain Stated Complaint: BLOOD SUGAR ISSUES Time Seen by Provider: 01/14/18 10:09 Notes: 57 y.o female with a PMHx of DM, rhumatoid arthritis, HTN, mild NV without stent placement or surgery. She presents to the ED with general malaise and not feeling well. Pt reports that yesterday she was very shaky with a poor appetite. She states that she had not eaten much yesterday other that a little snaking. Patient reports that she took her BGL yesterday which read at 126 which concerned her and she called her doctor who told her replenish her electolytes and to reduce her Lantus from 22units to 18units. Pt states that she was without relief and was told to come here if symptoms did not get better. Pt also notes nausea, urinary frequency and bilateral flank pain. She denies any vomiting. Pt denies any hx of stroke. (SHIN PARKER) - Related Data Allergies/Adverse Reactions: chocolate flavor Allergy (Verified 01/14/18 10:15) codeine [Codeine] Allergy (Verified 01/14/18 10:15) hydromorphone HCl [From Dilaudid] Allergy (Verified 01/14/18 10:15) tramadol HCl [From Ultram] Allergy (Verified 01/14/18 10:15) Past Medical History - General Information source: Patient - Social History Cigarette use (# per day): No Chew tobacco use (# tins/day): No Frequency of alcohol use: None Drug Abuse: None - Past Medical History Cardiac Medical History: Reports: Hx Heart Attack, Hx Hypercholesterolemia, Hx Hypertension Pulmonary Medical History: Reports: Hx Bronchitis, Hx Pneumonia Denies: Hx Tuberculosis Endocrine Medical History: Reports: Hx Diabetes Mellitus Type 2. Denies: Hx Graves' Disease, Hx Hyperthyroidism, Hx Hypothyroidism Renal/ Medical History: Denies: Hx End Stage Renal Disease, Hx Kidney Stones, Hx Peritoneal Dialysis GI Medical History: Reports: Hx Gastroesophageal Reflux Disease. Denies: Hx Crohn's Disease, Hx Hiatal Hernia, Hx Irritable Bowel, Hx Liver Failure, Hx Pancreatitis, Hx Ulcer Musculoskeltal Medical History: Reports Hx Arthritis - RA, Denies Hx Fibromyalgia, Denies Hx Muscular Dystrophy Traumatic Medical History: Denies: Hx Fractures Past Surgical History: Reports: Hx Cholecystectomy - 2005, Hx Hysterectomy, Hx Oral Surgery, Hx Tonsillectomy - 1969. Denies: Hx Appendectomy, Hx Bowel Surgery, Hx Section, Hx Colostomy, Hx Coronary Artery Bypass Graft, Hx Gastric Bypass Surgery, Hx Herniorrhaphy, Hx Mastectomy, Hx Pacemaker, Hx Tubal Ligation - Immunizations Immunizations up to date: Yes Hx Diphtheria, Pertussis, Tetanus Vaccination: Yes - 2007? <SHIN PARKER - Last Filed: 01/14/18 10:16> Review of Systems - Review of Systems Constitutional: See HPI, Malaise - and shaky EENT: No symptoms reported Cardiovascular: No symptoms reported Respiratory: No symptoms reported Gastrointestinal: See HPI, Nausea, Poor appetite. denies: Vomiting Genitourinary: See HPI, Frequency, Flank pain Female Genitourinary: No symptoms reported Musculoskeletal: No symptoms reported Skin: No symptoms reported Hematologic/Lymphatic: No symptoms reported Neurological/Psychological: No symptoms reported -: Yes All other systems reviewed and negative <SHIN PARKER - Last Filed: 01/14/18 10:16> Physical Exam <SHIN PARKER - Last Filed: 01/14/18 10:16> <FARRAH GARCIA - Last Filed: 01/14/18 11:23> - Vital signs Vitals: Temp Pulse Resp BP Pulse Ox 98.7 F 68 16 158/80 H 96 01/14/18 10:07 01/14/18 10:07 01/14/18 10:07 01/14/18 10:07 01/14/18 10:07 - Notes Notes: Physical Exam: General: Alert. HEENT: Normocephalic. Atraumatic. Neck: Supple. Respiratory: No respiratory distress. Abdominal: Normal Inspection. No distension. Back: CVA tenderness to percussion bilaterally. No rash. Extremities: Moves all four extremities. Neurological: Normal cognition. AAOx4. Normal speech. Psychological: Normal affect. Normal Mood. Skin: Warm. Dry. Normal color. (SHIN PARKRE) Course - Laboratory Result Diagrams: 01/14/18 10:35 01/14/18 10:35 <FARRAH GARCIA - Last Filed: 01/14/18 11:23> - Vital Signs Vital signs: Temp Pulse Resp BP Pulse Ox 98.7 F 68 16 158/80 H 96 01/14/18 10:07 01/14/18 10:07 01/14/18 10:07 01/14/18 10:07 01/14/18 10:17 - Laboratory Laboratory results interpreted by me: 01/14/18 01/14/18 10:35 10:35 WBC 11.6 H RDW 15.4 H Absolute Neutrophils 8.8 H Sodium 146.0 H Glucose 141 H Calcium 11.1 H Total Protein 9.2 H Scribe Documentation - Scribe Written by Trip:: Trip May 01/14/18 1027 acting as scribe for :: Lisbeth <SHIN PARKER - Last Filed: 01/14/18 10:16>
[2018-01-14] MEDS ORDERED: ASPIRIN 81 MG TABLET, CHEWABLE PO ONE (10:17)
[2018-01-14 10:50] LABS: ABSOLUTE BASOPHILS # (AUTO) 0.1 10^3/uL (0.0-0.2); ABSOLUTE EOSINOPHILS # (AUTO) 0.3 10^3/uL (0.0-0.6); ABSOLUTE LYMPHOCYTES (AUTO) 1.8 10^3/uL (0.5-4.7); ABSOLUTE MONOCYTES (AUTO) 0.5 10^3/uL (0.1-1.4); ABSOLUTE NEUT (AUTO) 8.8 10^3/uL (1.7-8.2); BASOPHILS % (AUTO) 0.7 % (0-2); EOSINOPHILS % (AUTO) 2.9 % (0-6); HEMATOCRIT 39.1 % (36.0-47.0); HEMOGLOBIN 13.1 g/dL (12.0-15.5); LYMPHOCYTES % (AUTO) 15.5 % (13-45); MEAN CORPUSCULAR HEMOGLOBIN 30.5 pg (27.0-33.4); MEAN CORPUSCULAR HGB CONC 33.4 g/dL (32.0-36.0); MEAN CORPUSCULAR VOLUME 91 fl (80-97); MONOCYTES % (AUTO) 4.5 % (3-13); PLATELET COUNT 291 10^3/uL (150-450); RED BLOOD COUNT 4.28 10^6/uL (3.72-5.28); RED CELL DISTRIBUTION WIDTH 15.4 % (11.5-14.0); SEGMENTED NEUTROPHILS % (AUTO) 76.4 % (42-78); TOTAL CELLS COUNTED % (AUTO) 100 %; WHITE BLOOD COUNT 11.6 10^3/uL (4.0-10.5)
[2018-01-14 11:11] LABS: ALANINE AMINOTRANSFERASE 23 U/L (9-52); ALBUMIN 4.7 g/dL (3.5-5.0); ALKALINE PHOSPHATASE 126 U/L (38-126); ANION GAP 15 (5-19); ASPARTATE AMINO TRANSFERASE 20 U/L (14-36); BILIRUBIN,DIRECT 0.4 mg/dL (0.0-0.4); BILIRUBIN,TOTAL 1.1 mg/dL (0.2-1.3); BLOOD UREA NITROGEN 11 mg/dL (7-20); CALCIUM 11.1 mg/dL (8.4-10.2); CARBON DIOXIDE 25 mmol/L (22-30); CHLORIDE 106 mmol/L (98-107); CREATINE KINASE 45 U/L (30-135); GLUCOSE 141 mg/dL (75-110); LIPASE 34.9 U/L (23-300); POTASSIUM 4.4 mmol/L (3.6-5.0); TOTAL PROTEIN 9.2 g/dL (6.3-8.2)
--- NOTE | 2018-01-14 11:21 | RADIOLOGY REPORT (SQ) ---
EXAM DESCRIPTION: CHEST SINGLE VIEW COMPLETED DATE/TIME: 01/14/2018 11:14 am REASON FOR STUDY: malaise, lack of appetitie, h/o diabetes and [place] COMPARISON: 05/28/2017 EXAM PARAMETERS: NUMBER OF VIEWS: One view. TECHNIQUE: Single frontal radiographic view of the chest acquired. RADIATION DOSE: NA LIMITATIONS: None. FINDINGS: LUNGS AND PLEURA: No opacities, masses or pneumothorax. No pleural effusion. MEDIASTINUM AND HILAR STRUCTURES: No masses. Contour normal. HEART AND VASCULAR STRUCTURES: Heart stable in size. Normal vasculature. BONES: No acute findings. HARDWARE: None in the chest. OTHER: No other significant finding. IMPRESSION: NO ACUTE RADIOGRAPHIC FINDING IN THE CHEST. TECHNICAL DOCUMENTATION: JOB ID: [id number] [employer]- All Rights Reserved Reading location - IP/workstation name: [email or web address]
[2018-01-14 11:23] LABS: CREATINE KINASE MB < 0.22 ng/mL (<4.55); TROPONIN I < 0.012 ng/mL
--- NOTE | 2018-01-14 11:23 | ER Document Report ---
ED General - General Chief Complaint: Abdominal Pain Stated Complaint: BLOOD SUGAR ISSUES Time Seen by Provider: 01/14/18 10:09 Mode of Arrival: Ambulatory Notes: Patient states that over the last several days she has had some back pain and bilateral flank pain. Blood sugar is been a little on the low and that she reports in the 150 range. She prefers to have her blood sugar in the 250 range. States that she feels a lot better when she is at 250. She has talked to her doctor about this and they told her to go ahead and decrease her diabetes medications. Has not really had an appetite. Denies any fever, chills , sweats, chest pain or other issues at this time. TRAVEL OUTSIDE OF THE [place] IN LAST 30 DAYS: No - Related Data Allergies/Adverse Reactions: chocolate flavor Allergy (Verified 01/14/18 10:15) codeine [Codeine] Allergy (Verified 01/14/18 10:15) hydromorphone HCl [From Dilaudid] Allergy (Verified 01/14/18 10:15) tramadol HCl [From Ultram] Allergy (Verified 01/14/18 10:15) Past Medical History - General Information source: Patient - Social History Smoking Status: Never Smoker Cigarette use (# per day): No Chew tobacco use (# tins/day): No Frequency of alcohol use: None Drug Abuse: None Lives with: Alone Family History: Reviewed & Not Pertinent, CAD, CVA, DM, Hyperlipidemia, Hypertension, Malignancy Patient has suicidal ideation: No Patient has homicidal ideation: No - Past Medical History Cardiac Medical History: Reports: Hx Heart Attack, Hx Hypercholesterolemia, Hx Hypertension Pulmonary Medical History: Reports: Hx Bronchitis, Hx Pneumonia Denies: Hx Tuberculosis Endocrine Medical History: Reports: Hx Diabetes Mellitus Type 2. Denies: Hx Graves' Disease, Hx Hyperthyroidism, Hx Hypothyroidism Renal/ Medical History: Denies: Hx End Stage Renal Disease, Hx Kidney Stones, Hx Peritoneal Dialysis GI Medical History: Reports: Hx Gastroesophageal Reflux Disease. Denies: Hx Crohn's Disease, Hx Hiatal Hernia, Hx Irritable Bowel, Hx Liver Failure, Hx Pancreatitis, Hx Ulcer Musculoskeltal Medical History: Reports Hx Arthritis - RA, Denies Hx Fibromyalgia, Denies Hx Muscular Dystrophy Traumatic Medical History: Denies: Hx Fractures Past Surgical History: Reports: Hx Cholecystectomy - 2005, Hx Hysterectomy, Hx Oral Surgery, Hx Tonsillectomy - 1970. Denies: Hx Appendectomy, Hx Bowel Surgery, Hx Section, Hx Colostomy, Hx Coronary Artery Bypass Graft, Hx Gastric Bypass Surgery, Hx Herniorrhaphy, Hx Mastectomy, Hx Pacemaker, Hx Tubal Ligation - Immunizations Immunizations up to date: Yes Hx Diphtheria, Pertussis, Tetanus Vaccination: Yes - 2007? Hx Pneumococcal Vaccination: 05/27/12 Review of Systems - Review of Systems Constitutional: Weakness. denies: Chills, Diaphoresis, Fever, Malaise EENT: No symptoms reported Cardiovascular: No symptoms reported Respiratory: No symptoms reported Gastrointestinal: No symptoms reported, Nausea Genitourinary: No symptoms reported Female Genitourinary: No symptoms reported Musculoskeletal: No symptoms reported, Back pain, Muscle pain, Muscle stiffness Skin: No symptoms reported Hematologic/Lymphatic: No symptoms reported Neurological/Psychological: No symptoms reported Physical Exam - Vital signs Vitals: Temp Pulse Resp BP Pulse Ox 98.7 F 68 16 158/80 H 96 01/14/18 10:07 01/14/18 10:07 01/14/18 10:07 01/14/18 10:07 01/14/18 10:07 Interpretation: Normal - General General appearance: Appears well, Alert - HEENT Head: Normocephalic, Atraumatic Eyes: Normal Pupils: PERRL - Respiratory Respiratory status: No respiratory distress Chest status: Nontender Breath sounds: Normal Chest palpation: Normal - Cardiovascular Rhythm: Regular Heart sounds: Normal auscultation Murmur: No - Abdominal Inspection: Normal Distension: No distension Bowel sounds: Normal Tenderness: Nontender Organomegaly: No organomegaly - Back Back: Normal, Nontender - Extremities General upper extremity: Normal inspection, Nontender, Normal color, Normal ROM , Normal temperature General lower extremity: Normal inspection, Nontender, Normal color, Normal ROM , Normal temperature, Normal weight bearing. No: Nohelia's sign - Neurological Neuro grossly intact: Yes Cognition: Normal Orientation: AAOx4 [place] Coma Scale Eye Opening: Spontaneous [place] Coma Scale Verbal: Oriented [place] Coma Scale Motor: Obeys Commands [place] Coma Scale Total: 15 Speech: Normal Motor strength normal: LUE, RUE, LLE, RLE Sensory: Normal - Psychological Associated symptoms: Normal affect, Normal mood - Skin Skin Temperature: Warm Skin Moisture: Dry Skin Color: Normal Course - Re-evaluation Re-evalutation: 01/14/18 15:31 Patient has been observed here for over 5 hours. Second troponin negative. EKG unremarkable. Labs fairly unremarkable with exception of a mildly elevated leukocytosis. Chest x-ray performed which was negative. CT of the abdomen and pelvis was performed which did not show any acute pathology. Consulted the hospitalist with regards to the benefits of admission for observation however she does not necessarily meet criteria for admission at this time. I gave her some fluids and some Toradol and she feels a little bit better. I have explained to her that these workups can often times take an extensive period of time to figure out. We have ruled out most of the major emergencies at this time. CT scan does not show any major concerns for an aneurysm. Does not appear to be any major cardiac issues going on. Blood sugar is completely within acceptable range at this time. Patient has been encouraged to follow-up with her regular doctor just as soon as possible for repeat evaluation. If her symptoms get worse over the next 24 hours she is instructed to return to the emergency department. Patient verbalized understanding of these instructions and we will discharge at this time in stable condition. - Vital Signs Vital signs: Temp Pulse Resp BP Pulse Ox 98.7 F 68 14 142/75 H 99 01/14/18 10:07 01/14/18 10:07 01/14/18 14:04 01/14/18 14:04 01/14/18 14:04 - Laboratory Result Diagrams: 01/14/18 10:35 01/14/18 10:35 Laboratory results interpreted by me: 01/14/18 01/14/18 01/14/18 10:35 10:35 11:20 WBC 11.6 H RDW 15.4 H Absolute Neutrophils 8.8 H Sodium 146.0 H Glucose 141 H Calcium 11.1 H Total Protein 9.2 H Urine Glucose (UA) >=500 H Urine Ketones 20 H Discharge - Discharge Clinical Impression: Back pain Qualifiers: Back pain location: back pain in unspecified location Chronicity: unspecified Back pain laterality: bilateral Qualified Code(s): M54.9 - Dorsalgia, unspecified Condition: Good Disposition: HOME, SELF-CARE Instructions: Low Back Pain ([facility]) Additional Instructions: Please follow-up with your regular doctor soon as possible for repeat evaluation. If your symptoms get worse over the next 24 hours then please return for repeat evaluation. We did not find anything major that was wrong today however these symptoms often times require repeat evaluations on a regular basis until something near their gets better or things get worse. Continue to take all of your regular medications as prescribed. Referrals: AUGUSTIN HOFFMAN MD [Primary Care Provider] - Follow up as needed
--- NOTE | 2018-01-14 11:49 | RADIOLOGY REPORT (SQ) ---
EXAM DESCRIPTION: CT ABD/PELVIS NO ORAL OR IV COMPLETED DATE/TIME: 01/14/2018 11:42 am REASON FOR STUDY: bilateral flank pain COMPARISON: 07/16/2016 TECHNIQUE: CT scan of the abdomen and pelvis performed without intravenous or oral contrast. Images reviewed with lung, soft tissue, and bone windows. Reconstructed coronal and sagittal MPR images revi ewed. All images stored on PACS. All CT scanners at this facility use dose modulation, iterative reconstruction, and/or weight based d osing when appropriate to reduce radiation dose to as low as reasonably achievable (ALARA). [facility]: Dose Right [facility]: CareDose [facility]: Dose Right [facility]: Teradose 4D [facility]: Smart [employer] RADIATION DOSE: CT Rad equipment meets quality standard of care and radiation dose reduction techniq ues were employed. CTDIvol: 18.4 mGy. DLP: 930 mGy-cm.mGy. LIMITATIONS: None. FINDINGS: LOWER CHEST: No significant findings. No nodules or infiltrates. NON-CONTRASTED LIVER, SPLEEN, ADRENALS: Evaluation limited by lack of IV contrast. No identified sign ificant masses. PANCREAS: No masses. No peripancreatic inflammatory changes. GALLBLADDER: Surgically absent. RIGHT KIDNEY AND URETER: No suspicious masses. Assessment limited by lack of IV contrast. No signif icant calcifications. No hydronephrosis or hydroureter. LEFT KIDNEY AND URETER: No suspicious masses. Assessment limited by lack of IV contrast. No signifi cant calcifications. No hydronephrosis or hydroureter. AORTA AND RETROPERITONEUM: No aneurysm. No retroperitoneal masses or adenopathy. BOWEL AND PERITONEAL CAVITY: No obvious masses or inflammatory changes. No free fluid. APPENDIX: Normal. PELVIS, BLADDER, AND ABDOMINAL WALL:Stable fat containing ventral wall hernias. No abnormal masses. No free fluid. Bladder normal. BONES: No significant findings. OTHER: No other significant finding. IMPRESSION: NO SIGNIFICANT OR ACUTE PROCESS IN THE ABDOMEN OR PELVIS. NO SIGNIFICANT CHANGE FROM UT IOR STUDY. COMMENT: Quality ID # [id number]: Final reports with documentation of one or more dose reduction techniques (e.g., Automated exposure control, adjustment of the mA and/or kV according to patient size, use of iterative reconstruction technique) TECHNICAL DOCUMENTATION: JOB ID: [id number] [employer]- All Rights Reserved Reading location - IP/workstation name: [email or web address]
[2018-01-14 11:51] LABS: APPEARANCE,URINE SLIGHTLY-CLOUDY; BILIRUBIN,URINE NEGATIVE (NEGATIVE); COLOR,URINE YELLOW; GLUCOSE, URINE >=500 mg/dL (NEGATIVE); KETONES,URINE 20 mg/dL (NEGATIVE); LEUKOCYTE ESTERASE,URINE NEGATIVE (NEGATIVE); NITRITE,URINE NEGATIVE (NEGATIVE); PROTEIN,URINE NEGATIVE (NEGATIVE); URINE SPECIFIC GRAVITY 1.027; UROBILINOGEN,URINE NEGATIVE mg/dL (<2.0)
[2018-01-14] MEDS ORDERED: KETOROLAC TROMETHAMINE INJ/PF 30 MG/1 ML SDV IV ONE (13:03)
[2018-01-14] MEDS ORDERED: NORMAL SALINE 1000 ML 1,000 ML IV ONE (13:04)
[2018-01-14 15:45] VITALS: BP 143/83
--- NOTE | 2018-01-15 09:40 | EKG REPORT ---
SEVERITY:- ABNORMAL ECG - SINUS RHYTHM PROBABLE LEFT VENTRICULAR HYPERTROPHY : Confirmed by: Alyse Fernández 15-Jan-2018 09:39:14
== END 2018-01-14 15:54 | disposition home or self-care (01) ==
LOC: ER 10:02
DX: M54.9 Dorsalgia, unspecified (principal); R10.9 Unspecified abdominal pain; R63.0 Anorexia; E11.9 Type 2 diabetes mellitus without complications; I25.2 Old myocardial infarction; I10 Essential (primary) hypertension
CPT/HCPCS: 93005; 99285; 96361; 96374; 36415; 82553; 82550; 83690; 85025; 80053; 81001; 84484; 71045; 74176; 93010; J1885; J7030

== ENCOUNTER 2019-01-16 13:52 | Emergency (ER) | payer MEDICAID ==
[2019-01-16] MEDS ORDERED: ACETAMINOPHEN 325 MG TABLET PO ONE (15:12)
--- NOTE | 2019-01-16 15:15 | ER Document Report ---
ED Medical Screen (RME) - General Chief Complaint: Headache Stated Complaint: HEADACHE Time Seen by Provider: 01/16/19 15:02 Primary Care Provider: AUGUSTIN HOFFMAN MD [Primary Care Provider] - Follow up as needed Information source: Patient TRAVEL OUTSIDE OF THE [place] IN LAST 30 DAYS: No - HPI Patient complains to provider of: HEADACHE, WEAKNESS Notes: 01/16/19 15:13 Patient here with multiple complaints. Patient states that she has been having a headache intermittently for the last several days still gotten worse today. She does complain of some pain in her cheeks. She also developed a worsening headache with photophobia today. She states when she woke up this morning she felt like she could not lift her left arm up. This seems to have improved. She is not on blood thinning medications. No injury. No fevers. Exam No distress, nontoxic-appearing. Lungs are clear and equal throughout. Heart sounds are normal. Nonfocal neurological exam with no pronator drift or unilateral weakness. Cranial nerves II through XII grossly intact. Plan CBC, CMP, troponin, coags, EKG, head CT, chest x-ray, urinalysis. An initial examination was made on the patient as part of the triage process, and it was determined a more comprehensive evaluation was necessary. Initial labs were ordered and patient was transferred to another provider in the ED who assumed care and finished evaluation and plan. - Related Data Allergies/Adverse Reactions: chocolate flavor Allergy (Verified 01/14/18 10:15) codeine [Codeine] Allergy (Verified 01/14/18 10:15) hydromorphone HCl [From Dilaudid] Allergy (Verified 01/14/18 10:15) tramadol HCl [From Ultram] Allergy (Verified 01/14/18 10:15) Past Medical History - Past Medical History Cardiac Medical History: Reports: Hx Heart Attack, Hx Hypercholesterolemia, Hx Hypertension Pulmonary Medical History: Reports: Hx Bronchitis, Hx Pneumonia Denies: Hx Tuberculosis Endocrine Medical History: Reports: Hx Diabetes Mellitus Type 2. Denies: Hx Graves' Disease, Hx Hyperthyroidism, Hx Hypothyroidism Renal/ Medical History: Denies: Hx End Stage Renal Disease, Hx Kidney Stones, Hx Peritoneal Dialysis GI Medical History: Reports: Hx Gastroesophageal Reflux Disease. Denies: Hx Crohn's Disease, Hx Hiatal Hernia, Hx Irritable Bowel, Hx Liver Failure, Hx Pancreatitis, Hx Ulcer Musculoskeltal Medical History: Reports Hx Arthritis - RA, Denies Hx Fibromyalgia, Denies Hx Muscular Dystrophy Traumatic Medical History: Denies: Hx Fractures Past Surgical History: Reports: Hx Cholecystectomy - 2005, Hx Hysterectomy, Hx Oral Surgery, Hx Tonsillectomy - 1969. Denies: Hx Appendectomy, Hx Bowel Surgery, Hx Section, Hx Colostomy, Hx Coronary Artery Bypass Graft, Hx Gastric Bypass Surgery, Hx Herniorrhaphy, Hx Mastectomy, Hx Pacemaker, Hx Tubal Ligation - Immunizations Immunizations up to date: Yes Hx Diphtheria, Pertussis, Tetanus Vaccination: Yes - 2007? Physical Exam - Vital signs Vitals: Temp Pulse Resp BP Pulse Ox 99 F 85 18 119/72 96 01/16/19 13:55 01/16/19 13:55 01/16/19 13:55 01/16/19 13:55 01/16/19 13:55 Course - Vital Signs Vital signs: Temp Pulse Resp BP Pulse Ox 99 F 85 18 119/72 96 01/16/19 13:55 01/16/19 13:55 01/16/19 13:55 01/16/19 13:55 01/16/19 13:55 Doctor's Discharge - Discharge Referrals: AUGUSTIN HOFFMAN MD [Primary Care Provider] - Follow up as needed
--- NOTE | 2019-01-16 15:32 | RADIOLOGY REPORT (SQ) ---
EXAM DESCRIPTION: CT HEAD WITHOUT COMPLETED DATE/TIME: 01/16/2019 3:21 pm REASON FOR STUDY: HEADACHE, LEFT ARM WEAKNESS COMPARISON: 09/21/2015 TECHNIQUE: Axial images acquired through the brain without intravenous contrast. Images reviewed wi th bone, brain and subdural windows. Additional sagittal and coronal reconstructions were generated. Images stored on PACS. All CT scanners at this facility use dose modulation, iterative reconstruction, and/or weight based d osing when appropriate to reduce radiation dose to as low as reasonably achievable (ALARA). [facility]: Dose Right [facility]: CareDose [facility]: Dose Right [facility]: Teradose 4D [facility]: [employer] RADIATION DOSE: CT Rad equipment meets quality standard of care and radiation dose reduction techniq ues were employed. CTDIvol: 53.2 mGy. DLP: 964 mGy-cm. mGy. LIMITATIONS: None. FINDINGS: VENTRICLES: Normal size and contour. CEREBRUM: No masses. No hemorrhage. No midline shift. No evidence for acute infarction. Normal gra y/white matter differentiation. No areas of low density in the white matter. CEREBELLUM: No masses. No hemorrhage. No alteration of density. No evidence for acute infarction. EXTRAAXIAL SPACES: No fluid collections. No masses. ORBITS AND GLOBE: No intra- or extraconal masses. Normal contour of globe without masses. CALVARIUM: No fracture. PARANASAL SINUSES: There is complete opacification of the right maxillary sinus. There is a large ai r-fluid level in the left maxillary sinus. Some of the ethmoid air cells are opacified. SOFT TISSUES: No mass or hematoma. OTHER: No other significant finding. IMPRESSION: Sinus disease. No acute intracranial imaging findings. EVIDENCE OF ACUTE STROKE: NO. COMMENT: Quality ID # 436: Final reports with documentation of one or more dose reduction techniques (e.g., Automated exposure control, adjustment of the mA and/or kV according to patient size, use of iterative reconstruction technique) TECHNICAL DOCUMENTATION: JOB ID: [id number] [employer]- All Rights Reserved Reading location - IP/workstation name: [email or web address]
--- NOTE | 2019-01-16 15:35 | RADIOLOGY REPORT (SQ) ---
EXAM DESCRIPTION: CHEST SINGLE VIEW COMPLETED DATE/TIME: 01/16/2019 3:27 pm REASON FOR STUDY: HEADACHE, LEFT ARM WEAKNESS COMPARISON: 04/22/2017. EXAM PARAMETERS: NUMBER OF VIEWS: One view. TECHNIQUE: Single frontal radiographic view of the chest acquired. RADIATION DOSE: NA LIMITATIONS: None. FINDINGS: LUNGS AND PLEURA: No opacities, masses or pneumothorax. No pleural effusion. MEDIASTINUM AND HILAR STRUCTURES: No masses. Contour normal. HEART AND VASCULAR STRUCTURES: Heart upper limits of normal in size. Normal vasculature. BONES: No acute findings. HARDWARE: None in the chest. Clips in the upper abdomen. OTHER: No other significant finding. IMPRESSION: NO ACUTE RADIOGRAPHIC FINDING IN THE CHEST. TECHNICAL DOCUMENTATION: JOB ID: [id number] [employer]- All Rights Reserved Reading location - IP/workstation name: [email or web address]
[2019-01-16] MEDS ORDERED: ACETAMINOPHEN 325 MG TABLET ONE (15:43)
[2019-01-16 16:16] LABS: INTERNATIONAL RATION (INR) 1.03
[2019-01-16 16:19] LABS: ABSOLUTE BASOPHILS # (AUTO) 0.1 10^3/uL (0.0-0.2); ABSOLUTE EOSINOPHILS # (AUTO) 0.1 10^3/uL (0.0-0.6); ABSOLUTE LYMPHOCYTES (AUTO) 1.6 10^3/uL (0.5-4.7); ABSOLUTE MONOCYTES (AUTO) 0.9 10^3/uL (0.1-1.4); BASOPHILS % (AUTO) 0.7 % (0-2); EOSINOPHILS % (AUTO) 0.6 % (0-6); HEMATOCRIT 36.7 % (36.0-47.0); HEMOGLOBIN 12.2 g/dL (12.0-15.5); LYMPHOCYTES % (AUTO) 10.5 % (13-45); MEAN CORPUSCULAR HEMOGLOBIN 30.7 pg (27.0-33.4); MEAN CORPUSCULAR HGB CONC 33.2 g/dL (32.0-36.0); MEAN CORPUSCULAR VOLUME 93 fl (80-97); MONOCYTES % (AUTO) 5.6 % (3-13); PLATELET COUNT 337 10^3/uL (150-450); RED BLOOD COUNT 3.97 10^6/uL (3.72-5.28); RED CELL DISTRIBUTION WIDTH 14.3 % (11.5-14.0); SEGMENTED NEUTROPHILS % (AUTO) 82.6 % (42-78); TOTAL CELLS COUNTED % (AUTO) 100 %; WHITE BLOOD COUNT 15.8 10^3/uL (4.0-10.5)
[2019-01-16 16:38] LABS: ALANINE AMINOTRANSFERASE 23 U/L (9-52); ALBUMIN 4.1 g/dL (3.5-5.0); ALKALINE PHOSPHATASE 200 U/L (38-126); ANION GAP 12 (5-19); ASPARTATE AMINO TRANSFERASE 24 U/L (14-36); BILIRUBIN,DIRECT 0.5 mg/dL (0.0-0.4); BILIRUBIN,TOTAL 1.3 mg/dL (0.2-1.3); BLOOD UREA NITROGEN 13 mg/dL (7-20); CALCIUM 11.6 mg/dL (8.4-10.2); CARBON DIOXIDE 23 mmol/L (22-30); CHLORIDE 104 mmol/L (98-107); GLUCOSE 213 mg/dL (75-110); POTASSIUM 4.9 mmol/L (3.6-5.0); SODIUM 138.9 mmol/L (137-145); TOTAL PROTEIN 8.1 g/dL (6.3-8.2)
--- NOTE | 2019-01-16 17:28 | EKG REPORT ---
SEVERITY:- ABNORMAL ECG - SINUS RHYTHM BIATRIAL ABNORMALITIES PROBABLE LEFT VENTRICULAR HYPERTROPHY : Confirmed by: Den Regan MD 16-Jan-2019 17:27:39
[2019-01-16] MEDS: IBUPROFEN 600 MG TABLET PO ONE ×2 (18:20→18:23)
[2019-01-16 18:21] LABS: APPEARANCE,URINE CLEAR; BILIRUBIN,URINE NEGATIVE (NEGATIVE); COLOR,URINE YELLOW; GLUCOSE, URINE >=500 mg/dL (NEGATIVE); KETONES,URINE TRACE mg/dL (NEGATIVE); LEUKOCYTE ESTERASE,URINE NEGATIVE (NEGATIVE); NITRITE,URINE NEGATIVE (NEGATIVE); PROTEIN,URINE NEGATIVE (NEGATIVE); URINE SPECIFIC GRAVITY 1.022
[2019-01-16 20:08] LABS: C-REACTIVE PROTEIN 234.9 mg/L (<10.0)
[2019-01-16] MEDS ORDERED: PREDNISONE 20 MG TABLET PO ONE ×2 (20:08→20:11)
[2019-01-16] MEDS ORDERED: METOCLOPRAMIDE HCL INJ/PF 10 MG/2 ML SDV IM ONE (20:08)
--- NOTE | 2019-01-16 20:17 | ER Document Report ---
ED General - General Chief Complaint: Headache Stated Complaint: HEADACHE Time Seen by Provider: 01/16/19 15:02 Primary Care Provider: PACHECO NAIR MD [ACTIVE STAFF] - Follow up tomorrow (AT 9AM. PLEASE DO NOT MISS THIS APPOINTMENT! ) AUGUSTIN HOFFMAN MD [Primary Care Provider] - Follow up as needed Notes: Patient is a 58-year-old female with past medical history of essential hypertension, morbid obesity, rheumatoid arthritis, diabetes with insulin dependence who presents with 2 days of intermittent headache, blurring of vision and jaw claudication. The patient reports that her symptoms started gradually, have become progressively severe over that time. Describes the pain as being located over her bilateral temporal regions worse in the left versus the right has a throbbing, aching, constant pain. Worsened by lights. 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 She also notes that she is had some jaw claudication with pain with chewing. She did try taking Percocet today with no improvement. She has not seen her primary care physician regarding today's concerns. Apparently in triage she complained of some left upper extremity heaviness which she denied to me. Specifically denies any focal weakness, numbness or confusion. No chest pain or shortness of breath. No history of similar symptoms in the past. TRAVEL OUTSIDE OF THE [place] IN LAST 30 DAYS: No - Related Data Allergies/Adverse Reactions: chocolate flavor Allergy (Verified 01/14/18 10:15) codeine [Codeine] Allergy (Verified 01/14/18 10:15) hydromorphone HCl [From Dilaudid] Allergy (Verified 01/14/18 10:15) tramadol HCl [From Ultram] Allergy (Verified 01/14/18 10:15) Past Medical History - General Information source: Patient - Social History Smoking Status: Never Smoker Frequency of alcohol use: None Drug Abuse: None Lives with: Family Family History: Reviewed & Not Pertinent, CAD, CVA, DM, Hyperlipidemia, Hypertension, Malignancy Patient has suicidal ideation: No Patient has homicidal ideation: No - Past Medical History Cardiac Medical History: Reports: Hx Heart Attack, Hx Hypercholesterolemia, Hx Hypertension Pulmonary Medical History: Reports: Hx Bronchitis, Hx Pneumonia Denies: Hx Tuberculosis Endocrine Medical History: Reports: Hx Diabetes Mellitus Type 2. Denies: Hx Graves' Disease, Hx Hyperthyroidism, Hx Hypothyroidism Renal/ Medical History: Denies: Hx End Stage Renal Disease, Hx Kidney Stones, Hx Peritoneal Dialysis GI Medical History: Reports: Hx Gastroesophageal Reflux Disease. Denies: Hx Crohn's Disease, Hx Hiatal Hernia, Hx Irritable Bowel, Hx Liver Failure, Hx Pancreatitis, Hx Ulcer Musculoskeletal Medical History: Reports Hx Arthritis - RA, Denies Hx Fibromyalgia, Denies Hx Muscular Dystrophy Traumatic Medical History: Denies: Hx Fractures Past Surgical History: Reports: Hx Cholecystectomy - 2005, Hx Hysterectomy, Hx Oral Surgery, Hx Tonsillectomy - 1969. Denies: Hx Appendectomy, Hx Bowel Surgery, Hx Section, Hx Colostomy, Hx Coronary Artery Bypass Graft, Hx Gastric Bypass Surgery, Hx Herniorrhaphy, Hx Mastectomy, Hx Pacemaker, Hx Tubal Ligation - Immunizations Immunizations up to date: Yes Hx Diphtheria, Pertussis, Tetanus Vaccination: Yes - 2007? Hx Pneumococcal Vaccination: 05/27/12 Review of Systems - Review of Systems Notes: Constitutional: Negative for fever. HENT: Negative for sore throat. Eyes: Positive for visual changes. Cardiovascular: Negative for chest pain. Respiratory: Negative for shortness of breath. Gastrointestinal: Negative for abdominal pain, vomiting or diarrhea. Genitourinary: Negative for dysuria. Musculoskeletal: Negative for back pain. Skin: Negative for rash. Neurological: Positive for headaches 10 point ROS negative except as marked above and in HPI. Physical Exam - Vital signs Vitals: Temp Pulse Resp BP Pulse Ox 99 F 85 18 119/72 96 01/16/19 13:55 01/16/19 13:55 01/16/19 13:55 01/16/19 13:55 01/16/19 13:55 Interpretation: Normal Notes: PHYSICAL EXAMINATION: GENERAL: Appears older than stated age, in no acute distress HEAD: Atraumatic, normocephalic. Exquisite pain on palpation of the bilateral temporal regions. EYES: Pupils equal round and reactive to light, extraocular movements intact, sclera anicteric, conjunctiva are normal. ENT: nares patent, oropharynx clear without exudates. Moist mucous membranes. NECK: Normal range of motion, supple without lymphadenopathy LUNGS: Breath sounds clear to auscultation bilaterally and equal. No wheezes rales or rhonchi. HEART: Regular rate and rhythm without murmurs ABDOMEN: Soft, nontender, normoactive bowel sounds. No guarding, no rebound. No masses appreciated. EXTREMITIES: Normal range of motion, no pitting or edema. No cyanosis. NEUROLOGICAL: Face symmetric. Tongue protrudes midline. Extraocular motions intact. Pupils are 2 mm and equally reactive. Normal speech. 5 out of 5 strength in both the distal and proximal upper and lower extremities bilaterally. Sensation is grossly intact throughout. Finger to nose testing normal. Pronator drift normal. PSYCH: Normal mood, normal affect. SKIN: Warm, Dry, normal turgor, no rashes or lesions noted. Course - Re-evaluation Re-evalutation: 01/16/19 20:15 Patient presents with a clinical picture very worrisome for giant cell arteritis. She is presenting with jaw claudication, bitemporal pain with associated headache worsening over the last 2 days as well as increased blurring vision. 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 In triage she apparently complained of some left arm heaviness but denied it to the provider shortly after stating it based on his note. To be she denies any other complaints at this time other than headache, blurring of vision and jaw pain. She denies any focal weakness or numbness. The pain is throbbing, severe, constant. Not improved or worsened by anything. She did try Percocet and Excedrin Migraine headache at home with no relief. States the headache was gradual in onset and has been worsening since that time over the last 48 hours. I am very worried that the patient has giant cell arteritis given her advanced age, temporal pain, blurring of her vision, jaw claudication as well as ESR of 100 and a CRP of 234. I directly discussed her case with Dr. Nair the pet sitter promotion producer who will see her in the office tomorrow. Obviously there is concern for the patient becoming hyperglycemic in the setting of diabet es with insulin dependence. I have informed the patient of this concern and the need to contact her industrial waste treatment technician tomorrow for assistance with dosing management of her insulin in the setting of needing high-dose steroids. She will be seen in the office by Dr. Nair at 9 AM so I will not write a prescription at this time but rather await his recommendation for ongoing steroid nursing versus possible pulse dosing as an inpatient if exam tomorrow in the office is concerning. - Vital Signs Vital signs: Temp Pulse Resp BP Pulse Ox 98.9 F 93 16 127/76 H 97 01/16/19 20:43 01/16/19 20:43 01/16/19 20:43 01/16/19 20:43 01/16/19 20:43 - Laboratory Result Diagrams: 01/16/19 15:47 01/16/19 15:47 Laboratory results interpreted by me: 01/16/19 01/16/19 01/16/19 15:47 15:47 15:47 WBC 15.8 H RDW 14.3 H Seg Neutrophils % 82.6 H Lymphocytes % 10.5 L Absolute Neutrophils 13.0 H ESR Glucose 213 H Calcium 11.6 H Direct Bilirubin 0.5 H Alkaline Phosphatase 200 H C-Reactive Protein 234.9 H Urine Glucose (UA) Urine Ketones Urine Urobilinogen 01/16/19 01/16/19 15:47 17:57 WBC RDW Seg Neutrophils % Lymphocytes % Absolute Neutrophils ESR 100 H Glucose Calcium Direct Bilirubin Alkaline Phosphatase C-Reactive Protein Urine Glucose (UA) >=500 H Urine Ketones TRACE H Urine Urobilinogen 2.0 H - Diagnostic Test Radiology reviewed: Image reviewed, Reports reviewed Radiology results interpreted by me: 01/16/19 20:17 CT head: No acute intracranial bleed or mass - EKG Interpretation by Me Additional EKG results interpreted by me: 01/16/19 20:18 Sinus rhythm, rate 86. LVH. No ST elevations or depressions. QTC 421. Discharge - Discharge Clinical Impression: Giant cell arteritis Diabetes mellitus Qualifiers: Diabetes mellitus type: type 2 Diabetes mellitus rodent exterminator insulin use: with residential use Diabetes mellitus complication status: without complication Qualified Code(s): E11.9 - Type 2 diabetes mellitus without complications Condition: Stable Disposition: HOME, SELF-CARE Additional Instructions: Your symptoms are very worrisome for something called giant cell arteritis. You have been given the first dose of steroids here in the emergency department. The dose has been 80 mg after a conversation with the pet sitter will see you tomorrow Dr. Nair. He will see you at 9 AM in the morning. Please do not miss this appointment. You will likely need to have a consultation with your industrial waste treatment technician for management of your high blood sugars in the context of needing steroids particularly at such high dosing. Please return to the emergency department immediately if develop worsening headache, persistent vomiting, focal weakness, numbness, confusion or any other symptoms that are worrisome to you. Based on your exam tomorrow you will be written a prescription for steroids by Dr. Nair or potentially require hospitalization for IV steroids Referrals: AUGUSTIN HOFFMAN MD [Primary Care Provider] - Follow up as needed PACHECO NAIR MD [ACTIVE STAFF] - Follow up tomorrow (AT 9AM. PLEASE DO NOT MISS THIS APPOINTMENT! )
[2019-01-16 20:43] VITALS: BP 127/76
== END 2019-01-16 21:07 | disposition home or self-care (01) ==
LOC: ER 13:52
DX: M31.6 Other giant cell arteritis (principal); E11.9 Type 2 diabetes mellitus without complications; R51 Headache; H53.8 Other visual disturbances; R68.84 Jaw pain; Z79.4 Long term (current) use of insulin; Z79.899 Other long term (current) drug therapy; I10 Essential (primary) hypertension
CPT/HCPCS: 93005; 99285; 96372; 36415; 85025; 85652; 85610; 85730; 86140; 80053; 81001; 84484; 71045; 70450; 93010; J3490; J2765; J7512

== ENCOUNTER 2019-01-30 13:00 | Day surgery (SDC) | payer MEDICAID ==
[~2019-01-30 13:00] MED LIST: 1/2 NORMAL SALINE 1,000 ML IV PRN
[2019-01-30] MEDS ORDERED: BUPIVACAINE HCL 0.25 % INJ/PF (2.5 MG/1 ML) 30 ML VIAL ONE (13:21)
[2019-01-30] MEDS ORDERED: LIDOCAINE 0.5% INJ-PF (5 MG/ML) 50 ML SDV ONE (13:21)
[2019-01-30 14:01] LABS: HEMATOCRIT 35.3 % (36.0-47.0); HEMOGLOBIN 11.5 g/dL (12.0-15.5); MEAN CORPUSCULAR HEMOGLOBIN 29.9 pg (27.0-33.4); MEAN CORPUSCULAR HGB CONC 32.5 g/dL (32.0-36.0); MEAN CORPUSCULAR VOLUME 92 fl (80-97); PLATELET COUNT 423 10^3/uL (150-450); RED BLOOD COUNT 3.84 10^6/uL (3.72-5.28); RED CELL DISTRIBUTION WIDTH 14.9 % (11.5-14.0); WHITE BLOOD COUNT 12.5 10^3/uL (4.0-10.5)
--- NOTE | 2019-01-30 14:15 | RADIOLOGY REPORT (SQ) ---
EXAM DESCRIPTION: CHEST SINGLE VIEW COMPLETED DATE/TIME: 01/30/2019 1:55 pm REASON FOR STUDY: preop COMPARISON: AP CHEST 01/16/2019 EXAM PARAMETERS: NUMBER OF VIEWS: One view. TECHNIQUE: Single frontal radiographic view of the chest acquired. RADIATION DOSE: NA LIMITATIONS: None. FINDINGS: LUNGS AND PLEURA: No opacities, masses or pneumothorax. No pleural effusion. MEDIASTINUM AND HILAR STRUCTURES: No masses. Contour normal. HEART AND VASCULAR STRUCTURES: Borderline cardiomegaly, stable BONES: No acute findings. HARDWARE: None in the chest. OTHER: Clips right upper quadrant post cholecystectomy IMPRESSION: NO ACUTE RADIOGRAPHIC FINDING IN THE CHEST. TECHNICAL DOCUMENTATION: JOB ID: [id number]- All Rights Reserved Reading location - IP/workstation name: [email or web address]
[2019-01-30 14:21] LABS: ANION GAP 10 (5-19); BLOOD UREA NITROGEN 13 mg/dL (7-20); CALCIUM 10.7 mg/dL (8.4-10.2); CARBON DIOXIDE 25 mmol/L (22-30); CHLORIDE 104 mmol/L (98-107); GLUCOSE 151 mg/dL (75-110); POTASSIUM 4.7 mmol/L (3.6-5.0); SODIUM 139.2 mmol/L (137-145)
[2019-01-30 14:42] LABS: ERYTHROCYTE SEDIMENTATION RATE 104 mm/hr (0-30)
[2019-01-30] MEDS ORDERED: PROPOFOL INJ 200 MG/20 ML VIAL IV ONE (16:01)
[2019-01-30] MEDS ORDERED: MIDAZOLAM 2 MG/2 ML INJ ONE (16:01)
[2019-01-30] MEDS ORDERED: ONDANSETRON HCL INJ/PF 4 MG/2 ML SDV ONE (16:01)
[2019-01-30] MEDS ORDERED: FENTANYL CITRATE INJ/PF 100 MCG/2 ML AMPUL ONE (16:01)
[2019-01-30] MEDS ORDERED: DIPHENHYDRAMINE HCL 50 MG/ML VIAL IV PRN (16:55)
[2019-01-30] MEDS ORDERED: FENTANYL CITRATE INJ/PF 100 MCG/2 ML AMPUL IV PRN ×2 (16:55)
[2019-01-30] MEDS ORDERED: MEPERIDINE HCL/PF INJ 25 MG/1 ML DISP.SYRIN IV PRN (16:55)
[2019-01-30] MEDS ORDERED: PROMETHAZINE HCL INJ 25 MG/1 ML VIAL IV PRN (16:55)
--- NOTE | 2019-01-30 17:17 | Discharge Summary ---
Discharge Summary (SDC) - Discharge Final Diagnosis: Temporal arteritis, suspected. 2. Rheumatoid arthritis. 3. Diabetes mellitus. 4. Hypertension. Date of Surgery: 01/30/19 Discharge Date: 01/30/19 Condition: Fair Treatment or Instructions: Discharge home [after recovery per ASU criteria]. Diet , diabetic,as tolerated, when fully awake advance as tolerated. Activities within moderation encouraged. Follow up in my office by appointment in about [1 week]. Call for appointment. Leave wounds [covered], [keep clean and dry, until office visit in 1 week]. Hold of on school/work [until evaluation in office]. Meds per med rec. OTC pain meds. May shower [in 48 hrs], [try to keep operated area as dry as possible]. Discharge Diet: Other (Comments) - Diabetic Respiratory Treatments at Home: Deep Breathing/Coughing Discharge Activity: Activity As Tolerated Report the Following to Your Physician Immediately: Shortness of Breath
--- NOTE | 2019-01-30 17:18 | Operative Report ---
Operative Report DATE OF SURGERY: 01/30/19 PREOPERATIVE DIAGNOSIS: Temporal arteritis, suspected. 2. Rheumatoid arthriti s. 3. Diabetes mellitus. 4. Hypertension. POSTOPERATIVE DIAGNOSIS: Temporal arteritis, suspected. 2. Rheumatoid arthritis. 3. Diabetes mellitus. 4. Hypertension. OPERATION: Right temporal artery biopsy. SURGEON: ANJELICA URRUTIA CATALYST MANUFACTURING OPERATOR: None. ANESTHESIA: LMAC TISSUE REMOVED OR ALTERED: Portion of the right temporal artery. COMPLICATIONS: None. ESTIMATED BLOOD LOSS: 5 mL. INTRAOPERATIVE FINDINGS: Of the normal-looking right temporal artery, grossly. A segment about 2 cm in length harvested and submitted for pathology. PROCEDURE: PROCEDURE: The right temporal area was prepared with [chlorhexidine] and draped out with sterile linen. After the"universal time-out", in which it was confirmed that the patient [did not need antibiotic], the procedure commenced. The patient was appropriately anesthetized. The topographic location of the temporal artery was identified using a Doppler instrument and also palpation. It was marked in ink.. A dilute solution of local anesthesia was generously infiltrated in the skin and subcutaneous tissues above and around the area. An incision was made as marked. This went through to the subcutaneous tissues. Dissection now proceeded By spreading a hemostat to reveal the artery beneath the fascia. The artery was dissected out for a distance of about 2 cm. Both ends were clamped. The intervening section was excised and carefully submitted for pathology in formalin. Both ends were now suture ligated using 5-0 Prolene suture The wound was now closed using [a single layer of interrupted sutures. These were of 5-0 Prolene. A sterile dressing was applied and the procedure concluded.
[2019-01-30 19:26] VITALS: BP 170/70
== END 2019-01-30 19:10 | disposition home or self-care (01) ==
LOC: OROUT 13:00
PROVIDERS: ATTEND Surgery
DX: M31.6 Other giant cell arteritis (principal); E11.9 Type 2 diabetes mellitus without complications; M06.9 Rheumatoid arthritis, unspecified; I10 Essential (primary) hypertension; K21.9 Gastro-esophageal reflux disease without esophagitis; I25.2 Old myocardial infarction; M35.00 Sjogren syndrome, unspecified; J30.2 Other seasonal allergic rhinitis; Z87.891 Personal history of nicotine dependence; Z86.718 Personal history of other venous thrombosis and embolism; Z79.899 Other long term (current) drug therapy; Z79.82 Long term (current) use of aspirin; Z88.5 Allergy status to narcotic agent; Z79.84 Long term (current) use of oral hypoglycemic drugs
CPT/HCPCS: 36415; 85027; 85652; 80048; 88305 ×2; 71045; 37609; J2250; J3010; J3490; J2405; S0020; J2704; 352

== ENCOUNTER 2019-11-28 22:12 | Emergency (ER) | payer MEDICAID ==
--- NOTE | 2019-11-28 23:02 | ER Document Report ---
ED Medical Screen (RME) - General Chief Complaint: Chest Pain Stated Complaint: CHEST AND ARM PAIN,SUGAR AND BLOOD PRESSURE ISSUES Time Seen by Provider: 11/28/19 22:51 Notes: 59-year-old female with chief complaint of chest pain starting in the left side of her chest radiating down the left arm, symptoms started about 8 PM tonight. She states she took Excedrin which has 324 mg of aspirin in it. She also states that she took her blood pressure and it was 160 systolic so she took her nighttime blood pressure medication again, she also states her blood glucose was over 300 so she took 10 units of insulin. She reports current chest pain. She denies any other symptoms. TRAVEL OUTSIDE OF THE [place] IN LAST 30 DAYS: No - Related Data Allergies/Adverse Reactions: chocolate flavor Allergy (Verified 01/14/18 10:15) codeine [Codeine] Allergy (Verified 01/14/18 10:15) hydromorphone HCl [From Dilaudid] Allergy (Verified 01/14/18 10:15) tramadol HCl [From Ultram] Allergy (Verified 01/14/18 10:15) Past Medical History - Social History Chew tobacco use (# tins/day): No Frequency of alcohol use: None Drug Abuse: None - Past Medical History Cardiac Medical History: Reports: Hx Heart Attack - MILD 2011, Hx H ypercholesterolemia, Hx Hypertension Denies: Hx Coronary Artery Disease Pulmonary Medical History: Denies: Hx Asthma, Hx Bronchitis, Hx Pneumonia, Hx Tuberculosis Neurological Medical History: Denies: Hx Cerebrovascular Accident, Hx Seizures Endocrine Medical History: Reports: Hx Diabetes Mellitus Type 2. Denies: Hx Gra ves' Disease, Hx Hyperthyroidism, Hx Hypothyroidism Renal/ Medical History: Denies: Hx End Stage Renal Disease, Hx Kidney Stones, Hx Peritoneal Dialysis GI Medical History: Reports: Hx Gastroesophageal Reflux Disease. Denies: Hx Crohn's Disease, Hx Hiatal Hernia, Hx Irritable Bowel, Hx Liver Failure, Hx Pancreatitis, Hx Ulcer Musculoskeltal Medical History: Reports Hx Arthritis - RA, Denies Hx Fibromyalgia, Denies Hx Muscular Dystrophy, Denies Hx Systemic Lupus Erythematosus Traumatic Medical History: Denies: Hx Fractures Past Surgical History: Reports: Hx Cholecystectomy - 2005, Hx Hysterectomy, Hx Oral Surgery, Hx Tonsillectomy - 1969. Denies: Hx Appendectomy, Hx Bowel Surgery, Hx Section, Hx Colostomy, Hx Coronary Artery Bypass Graft, Hx Gastric Bypass Surgery, Hx Herniorrhaphy, Hx Mastectomy, Hx Pacemaker, Hx Tubal Ligation - Immunizations Immunizations up to date: Yes Hx Diphtheria, Pertussis, Tetanus Vaccination: Yes Physical Exam - Vital signs Vitals: Temp Pulse Resp BP Pulse Ox 98.2 F 59 L 20 147/73 H 97 11/28/19 22:19 11/28/19 22:19 11/28/19 22:19 11/28/19 22:19 11/28/19 22:19 - General General appearance: Appears well In distress: None - Cardiovascular Rhythm: Regular. No: Tachycardia Heart sounds: Normal auscultation, S1 appreciated, S2 appreciated Course - Re-evaluation Re-evalutation: 11/28/19 23:00 EKG is concerning for inferior TX, patient upgraded, I brought patient back to trauma 2, Dr. Mcmullen was informed and is in seeing the patient I have greeted and performed a rapid initial assessment of this patient. A comprehensive ED assessment and evaluation of the patient, analysis of test results and completion of the medical decision making process will be conducted by additional ED providers. - Vital Signs Vital signs: Temp Pulse Resp BP Pulse Ox 98.2 F 59 L 20 147/73 H 97 11/28/19 22:19 11/28/19 22:19 11/28/19 22:19 11/28/19 22:19 11/28/19 22:19
[2019-11-28] MEDS ORDERED: NITROGLYCERIN/D5W 50 MG/250 ML RTUINJ IV ONE (23:05)
[2019-11-28] MEDS ORDERED: MORPHINE SULFATE 10 MG/ML INJ IV ONE (23:19)
[2019-11-28] MEDS ORDERED: ONDANSETRON HCL INJ/PF 4 MG/2 ML SDV IV ONE (23:20)
[2019-11-28] MEDS ORDERED: ASPIRIN 81 MG TABLET, CHEWABLE ONE (23:20)
[2019-11-28] MEDS ORDERED: TENECTEPLASE INJ 50 MG KIT IV ONE (23:20)
[2019-11-28 23:21] LABS: ABSOLUTE BASOPHILS # (AUTO) 0.1 10^3/uL (0.0-0.2); ABSOLUTE EOSINOPHILS # (AUTO) 0.2 10^3/uL (0.0-0.6); ABSOLUTE LYMPHOCYTES (AUTO) 2.3 10^3/uL (0.5-4.7); ABSOLUTE MONOCYTES (AUTO) 0.7 10^3/uL (0.1-1.4); ABSOLUTE NEUT (AUTO) 6.5 10^3/uL (1.7-8.2); BASOPHILS % (AUTO) 0.7 % (0-2); EOSINOPHILS % (AUTO) 2.6 % (0-6); HEMATOCRIT 39.3 % (36.0-47.0); HEMOGLOBIN 13.2 g/dL (12.0-15.5); LYMPHOCYTES % (AUTO) 23.4 % (13-45); MEAN CORPUSCULAR HGB CONC 33.7 g/dL (32.0-36.0); MEAN CORPUSCULAR VOLUME 92 fl (80-97); MONOCYTES % (AUTO) 6.8 % (3-13); PLATELET COUNT 258 10^3/uL (150-450); RED BLOOD COUNT 4.27 10^6/uL (3.72-5.28); RED CELL DISTRIBUTION WIDTH 14.8 % (11.5-14.0); SEGMENTED NEUTROPHILS % (AUTO) 66.5 % (42-78); TOTAL CELLS COUNTED % (AUTO) 100 %; WHITE BLOOD COUNT 9.7 10^3/uL (4.0-10.5)
[2019-11-28] MEDS ORDERED: ENOXAPARIN SODIUM INJ 30 MG/0.3 ML DISP.SYRIN IV ONE (23:22)
[2019-11-28] MEDS ORDERED: ENOXAPARIN SODIUM INJ 100 MG/1 ML DISP.SYRIN SUBCUT ONE (23:30)
--- NOTE | 2019-11-28 23:31 | ER Document Report ---
ED General - General Chief Complaint: Chest Pain Stated Complaint: CHEST AND ARM PAIN,SUGAR AND BLOOD PRESSURE ISSUES Time Seen by Provider: 11/28/19 22:51 TRAVEL OUTSIDE OF THE [place] IN LAST 30 DAYS: No - HPI Notes: Patient is a 59-year-old female who presents to the emergency department for evaluation of chest pain. She had pain just after 8 PM. It was when she woke up. She describes a left-sided chest pain with radiation into her left arm. She describes it as a squeezing pain. She has some associated nausea. No emesis. She denies any associated diaphoresis, near syncope, palpitations. She states she took some Excedrin, which does have aspirin in it. She took some insulin as her blood glucose was high as well. Otherwise she states she been taking her medications as prescribed. - Related Data Allergies/Adverse Reactions: chocolate flavor Allergy (Verified 11/28/19 23:10) codeine [Codeine] Allergy (Verified 11/28/19 23:10) hydromorphone HCl [From Dilaudid] Allergy (Verified 11/28/19 23:10) tramadol HCl [From Ultram] Allergy (Verified 11/28/19 23:10) Home Medications: Amlodipine 10 mg daily, aspirin 81 mg daily, Lipitor 20 mg daily, Coreg 25 mg twice daily, Zyrtec 10 mg daily, Jardiance 25 mg daily, folic acid 1 mg daily, Lasix 20 mg daily, Neurontin 300 mg at bedtime, metformin 1 g at bedtime, methotrexate 20 mg weekly, Protonix 20 mg daily, valsartan 160 mg daily Past Medical History - General Information source: Patient - Social History Smoking Status: Never Smoker Chew tobacco use (# tins/day): No Frequency of alcohol use: None Drug Abuse: None Family History: Reviewed & Not Pertinent, CAD, CVA, DM, Hyperlipidemia, Hypertension, Malignancy Patient has suicidal ideation: No Patient has homicidal ideation: No - Past Medical History Cardiac Medical History: Reports: Hx Heart Attack - MILD 2011, Hx Hypercholesterolemia, Hx Hypertension Denies: Hx Coronary Artery Disease Pulmonary Medical History: Denies: Hx Asthma, Hx Bronchitis, Hx Pneumonia, Hx Tuberculosis Neurological Medical History: Denies: Hx Cerebrovascular Accident, Hx Seizures Endocrine Medical History: Reports: Hx Diabetes Mellitus Type 2. Denies: Hx Graves' Disease, Hx Hyperthyroidism, Hx Hypothyroidism Renal/ Medical History: Denies: Hx End Stage Renal Disease, Hx Kidney Stones, Hx Peritoneal Dialysis GI Medical History: Reports: Hx Gastroesophageal Reflux Disease. Denies: Hx Crohn's Disease, Hx Hiatal Hernia, Hx Irritable Bowel, Hx Liver Failure, Hx Pancreatitis, Hx Ulcer Musculoskeletal Medical History: Reports Hx Arthritis - RA, Denies Hx Fibromyalgia, Denies Hx Muscular Dystrophy, Denies Hx Systemic Lupus Erythematosus Traumatic Medical History: Denies: Hx Fractures Past Surgical History: Reports: Hx Cholecystectomy - 2005, Hx Hysterectomy, Hx Oral Surgery, Hx Tonsillectomy - 1969. Denies: Hx Appendectomy, Hx Bowel Surgery, Hx Section, Hx Colostomy, Hx Coronary Artery Bypass Graft, Hx Gastric Bypass Surgery, Hx Herniorrhaphy, Hx Mastectomy, Hx Pacemaker, Hx Tubal Ligation - Immunizations Immunizations up to date: Yes Hx Diphtheria, Pertussis, Tetanus Vaccination: Yes Hx Pneumococcal Vaccination: 05/27/12 Review of Systems - Review of Systems Cardiovascular: See HPI Gastrointestinal: See HPI -: Yes All other systems reviewed and negative Physical Exam - Vital signs Vitals: Temp Pulse Resp BP Pulse Ox 98.2 F 59 L 20 147/73 H 97 11/28/19 22:19 11/28/19 22:19 11/28/19 22:19 11/28/19 22:19 11/28/19 22:19 - Notes Notes: This is a 59-year-old female who appears her stated age in no acute distress. Vital signs reviewed, please refer to chart. Head is normocephalic, atraumatic. Pupils equal round, reactive to light. Neck is supple without meningismus. Heart is regular rate and rhythm. Lungs are clear to auscultation bilaterally. Abdomen is soft, nontender, normoactive bowel sounds throughout. Extremities without cyanosis, clubbing. Posterior calves are nontender. Peripheral pulses are equal. Skin is warm and dry. Patient is awake, alert, neurological exam is nonfocal. Course - Re-evaluation Re-evalutation: 11/28/19 23:26 Patient presents to the emergency department for evaluation of chest pain. She had EKG is ordered through triage and per protocol. Patient was brought back into her room. She was placed on a cardiac specialist. Multiple large gauge matt pheral IVs were placed. She was given 81 mg of aspirin, she had already received aspirin prior to arrival. Nitroglycerin drip was ordered as soon as her blood pressure was found to be able to handle it. Patient was given morphine 4 and Zofran for as her pain went from an 8 out of 10 to a 6 out of 10 with the nitroglycerin drip. We will give her the morphine and continue to titrate up on the nitroglycerin. Initial EKG showed findings consistent with ST elevation ID of the inferior wall. She had lateral strain changes. Repeat EKG showed continued mild elevation but improvement, with improvement in lateral changes as well. IV Lovenox ordered. I spoke with Dr. I spoke with Dr. Leon Lloyd MD, in regards to treatment of this patient and transfer to [facility], where her mechanotherapist is. I did ask about the appropriateness of lytics in face of this evolving infarction. He states generally cardiology recommends pushing forward with them. The patient was given lytics. Will order subcutaneous Lovenox as well. She will be transferred to [facility]. 11/28/19 23:34 - Vital Signs Vital signs: Temp Pulse Resp BP Pulse Ox 98.2 F 59 L 20 147/73 H 97 11/28/19 22:19 11/28/19 22:19 11/28/19 22:19 11/28/19 22:19 11/28/19 22:19 - Laboratory Result Diagrams: 11/28/19 22:49 11/28/19 22:49 - Diagnostic Test Radiology reviewed: Image reviewed Radiology results interpreted by me: 11/28/19 23:31 Interpreted by myself without the aid of a radiologist as showing no acute process - EKG Interpretation by Me Additional EKG results interpreted by me: 11/28/19 23:31 Initial EKG shows sinus bradycardia with a rate of 56 bpm. Normal axis and intervals. ST elevation and lateral changes concerning for an inferior wall ID. Repeat EKG shows continued ST elevation although improvement, and lateral wall changes have improved. Third EKG is even further improved. These are all a change from prior study. Critical Care Note - Critical Care Note Total time excluding time spent on procedures (mins): 20 Discharge - Discharge Clinical Impression: ST elevation myocardial infarction (STEMI) of inferior wall Condition: Stable Disposition: [facility]
[2019-11-28] MEDS ORDERED: NITROGLYCERIN/D5W 50 MG/250 ML RTUINJ IV PRN (23:34)
--- NOTE | 2019-11-28 23:40 | RADIOLOGY REPORT (SQ) ---
AP Portable chest: 11/28/2019 10:38 PM ASSOCIATE TRAINER History: 59-year old patient with chest pain. Comparison: Chest radiograph performed 01/30/2019. Findings: The cardiomediastinal silhouette is normal in size. No pneumothorax is seen. No acute airspace opacities are seen. No discrete pleural effusion is apparent. Impression: No acute airspace opacities are seen.
[2019-11-28 23:56] VITALS: BP 143/80
[2019-11-29 00:01] LABS: ALBUMIN 4.3 g/dL (3.5-5.0); ALKALINE PHOSPHATASE 130 U/L (38-126); ANION GAP 10 (5-19); ASPARTATE AMINO TRANSFERASE 25 U/L (14-36); BILIRUBIN,DIRECT 0.1 mg/dL (0.0-0.4); BILIRUBIN,TOTAL 0.7 mg/dL (0.2-1.3); BLOOD UREA NITROGEN 19 mg/dL (7-20); CALCIUM 11.3 mg/dL (8.4-10.2); CARBON DIOXIDE 27 mmol/L (22-30); CHLORIDE 102 mmol/L (98-107); GLUCOSE 199 mg/dL (75-110); POTASSIUM 4.6 mmol/L (3.6-5.0); TOTAL PROTEIN 7.8 g/dL (6.3-8.2)
--- NOTE | 2019-11-29 07:24 | EKG REPORT ---
SEVERITY:- ABNORMAL ECG - SINUS RHYTHM PROBABLE LEFT ATRIAL ABNORMALITY PROBABLE LVH WITH SECONDARY REPOL ABNRM ST ELEVATION, CONSIDER INFERIOR INJURY : Confirmed by: Den Regan MD 29-Nov-2019 07:24:32
--- NOTE | 2019-11-29 07:26 | EKG REPORT ---
SEVERITY:- ABNORMAL ECG - SINUS RHYTHM PROBABLE LEFT ATRIAL ABNORMALITY LEFT VENTRICULAR HYPERTROPHY BORDERLINE ST ELEVATION, INFERIOR LEADS, NEED CLINICAL CORRELATION : Confirmed by: Den Regan MD 29-Nov-2019 07:25:59
--- NOTE | 2019-11-29 07:26 | EKG REPORT ---
SEVERITY:- ABNORMAL ECG - SINUS RHYTHM PROBABLE LEFT VENTRICULAR HYPERTROPHY BORDERLINE ST ELEVATION, INFERIOR LEADS CLINICAL CORRELATION NEEDED : Confirmed by: Den Regan MD 29-Nov-2019 07:25:08
--- NOTE | 2019-11-29 13:09 | EKG REPORT ---
SEVERITY:- ABNORMAL ECG - SINUS RHYTHM INFERIOR INJURY, PROBABLE EARLY ACUTE INFARCT : Confirmed by: Den Regan MD 29-Nov-2019 13:08:19
== END 2019-11-28 23:58 | disposition short-term general hospital (02) ==
LOC: ER 22:12
DX: I21.19 ST elevation (STEMI) myocardial infarction involving other coronary artery of inferior wall (principal); R07.9 Chest pain, unspecified; E78.00 Pure hypercholesterolemia, unspecified; I10 Essential (primary) hypertension; E11.9 Type 2 diabetes mellitus without complications; Z90.49 Acquired absence of other specified parts of digestive tract; Z88.6 Allergy status to analgesic agent; Z90.710 Acquired absence of both cervix and uterus; Z79.4 Long term (current) use of insulin; I25.2 Old myocardial infarction
CPT/HCPCS: 93005; 99285; 96372; 96374; 96375; 36415; 82962; 85025; 80053; 84484; 71045; 93010; J3101; J2270; J2405; J3490; J1650

== ENCOUNTER 2020-01-29 18:54 | Emergency (ER) | payer MEDICAID ==
[2020-01-29] MEDS ORDERED: ASPIRIN 81 MG TABLET, CHEWABLE PO ONE (19:13)
--- NOTE | 2020-01-29 19:35 | RADIOLOGY REPORT (SQ) ---
EXAM DESCRIPTION: CHEST 2 VIEWS IMAGES COMPLETED DATE/TIME: 01/29/2020 7:22 pm REASON FOR STUDY: Left shoulder pain recent SD history of high blood COMPARISON: Chest films 11/28/2019, 01/30/2019 EXAM PARAMETERS: NUMBER OF VIEWS: two views TECHNIQUE: Digital Frontal and Lateral radiographic views of the chest acquired. RADIATION DOSE: NA LIMITATIONS: none FINDINGS: LUNGS AND PLEURA: No opacities, masses or pneumothorax. No pleural effusion. MEDIASTINUM AND HILAR STRUCTURES: No masses or contour abnormalities. HEART AND VASCULAR STRUCTURES: Heart normal size. No evidence for failure. BONES: No acute findings. HARDWARE: None in the chest. OTHER: Clips right upper quadrant post cholecystectomy IMPRESSION: NO ACUTE RADIOGRAPHIC FINDING IN THE CHEST. TECHNICAL DOCUMENTATION: JOB ID: [id number] 2010 [employer]- All Rights Reserved Reading location - IP/workstation name: [id number]
--- NOTE | 2020-01-29 20:22 | ER Document Report ---
ED General - General Chief Complaint: Dizziness Stated Complaint: LIGHTHEADED Time Seen by Provider: 01/29/20 19:13 Mode of Arrival: Ambulatory Information source: Patient Notes: triage note patient presents reporting dizziness with high blood pressure and some L shoulder pain onset today. patient has hx of [place] x 2, last one in November with stent placement. Patient also has a hx of HTN. Patient alert and oriented, respirations e/u. my notes 60-year-old black female arrives with chief complaint of having low blood sugar at 74 around 1300 today she ate some candy and by 3 PM 1500 her blood sugar increased to 124 but her blood pressure is 174/112 and she was having anterior left-sided chest pain. She reports only 1 month ago she was seen here stabilized and sent by helicopter to [facility] where Dr. Figueredo performed a right wrist catheterization to her heart with 1 stent. She reports she is had a history of [place] x2 and hypertension . 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 She denies any nausea fever chills cough cold hemoptysis. TRAVEL OUTSIDE OF THE [place] IN LAST 30 DAYS: No - HPI Onset: Just prior to arrival Onset/Duration: Sudden, Better Quality of pain: No pain Severity: Mild Pain Level: 1 Associated symptoms: Chest pain Exacerbated by: Denies Relieved by: Denies Similar symptoms previously: Yes Recently seen / treated by doctor: Yes - Related Data Allergies/Adverse Reactions: chocolate flavor Allergy (Verified 11/28/19 23:10) codeine [Codeine] Allergy (Verified 11/28/19 23:10) hydromorphone HCl [From Dilaudid] Allergy (Verified 11/28/19 23:10) tramadol HCl [From Ultram] Allergy (Verified 11/28/19 23:10) Past Medical History - General Information source: Patient - Social History Smoking Status: Unknown if Ever Smoked Cigarette use (# per day): No Chew tobacco use (# tins/day): No Smoking Education Provided: No Frequency of alcohol use: None Drug Abuse: None Lives with: Family Family History: Reviewed & Not Pertinent, CAD, CVA, DM, Hyperlipidemia, Hypertension, Malignancy Patient has homicidal ideation: No - Past Medical History Cardiac Medical History: Reports: Hx Heart Attack - MILD 2012, Hx Hypercholesterolemia, Hx Hypertension Denies: Hx Coronary Artery Disease Pulmonary Medical History: Denies: Hx Asthma, Hx Bronchitis, Hx Pneumonia, Hx Tuberculosis Neurological Medical History: Denies: Hx Cerebrovascular Accident, Hx Seizures Endocrine Medical History: Reports: Hx Diabetes Mellitus Type 2. Denies: Hx Graves' Disease, Hx Hyperthyroidism, Hx Hypothyroidism Renal/ Medical History: Denies: Hx End Stage Renal Disease, Hx Kidney Stones, Hx Peritoneal Dialysis GI Medical History: Reports: Hx Gastroesophageal Reflux Disease. Denies: Hx Crohn's Disease, Hx Hiatal Hernia, Hx Irritable Bowel, Hx Liver Failure, Hx Pancreatitis, Hx Ulcer Musculoskeletal Medical History: Reports Hx Arthritis - RA, Denies Hx Fibromyalgia, Denies Hx Muscular Dystrophy, Denies Hx Systemic Lupus Erythematosus Traumatic Medical History: Denies: Hx Fractures Past Surgical History: Reports: Hx Cholecystectomy - 2005, Hx Hysterectomy, Hx Oral Surgery, Hx Tonsillectomy - 1969. Denies: Hx Appendectomy, Hx Bowel Surgery, Hx Section, Hx Colostomy, Hx Coronary Artery Bypass Graft, Hx Gastric Bypass Surgery, Hx Herniorrhaphy, Hx Mastectomy, Hx Pacemaker, Hx Tubal Ligation - Immunizations Immunizations up to date: Yes Hx Diphtheria, Pertussis, Tetanus Vaccination: Yes Hx Pneumococcal Vaccination: 05/27/12 Review of Systems - Review of Systems Constitutional: No symptoms reported EENT: No symptoms reported Cardiovascular: See HPI, Chest pain - With radiation to her left shoulder, Dizziness Respiratory: No symptoms reported Gastrointestinal: No symptoms reported Genitourinary: No symptoms reported Female Genitourinary: No symptoms reported Musculoskeletal: No symptoms reported Skin: No symptoms reported Hematologic/Lymphatic: No symptoms reported Neurological/Psychological: No symptoms reported Physical Exam - Vital signs Vitals: Pulse Resp BP Pulse Ox 63 18 151/96 H 97 01/29/20 18:56 01/29/20 18:56 01/29/20 18:56 01/29/20 18:56 Interpretation: Hypertensive - General General appearance: Appears well - HEENT Head: Normocephalic, Atraumatic Eyes: Normal Pupils: PERRL Pharynx: Normal Neck: Normal - Respiratory Respiratory status: No respiratory distress Chest status: Nontender Breath sounds: Normal Chest palpation: Normal - Cardiovascular Rhythm: Regular Heart sounds: Normal auscultation Murmur: No - Abdominal Inspection: Normal Distension: No distension Bowel sounds: Normal Tenderness: Nontender Organomegaly: No organomegaly - Back Back: Normal - Extremities General upper extremity: Normal inspection General lower extremity: Normal inspection - Neurological Neuro grossly intact: Yes Cognition: Normal Orientation: AAOx4 Jerrica Coma Scale Eye Opening: Spontaneous Jerrica Coma Scale Verbal: Oriented Frostproof Coma Scale Motor: Obeys Commands Frostproof Coma Scale Total: 15 Speech: Normal Motor strength normal: LUE, RUE, LLE, RLE Sensory: Normal - Psychological Associated symptoms: Normal affect - Skin Skin Temperature: Warm Skin Moisture: Dry Course - Vital Signs Vital signs: Temp Pulse Resp BP Pulse Ox 98.8 F 63 16 151/68 H 100 01/29/20 19:11 01/29/20 19:00 01/29/20 22:03 01/29/20 22:03 01/29/20 22:03 - Laboratory Result Diagrams: 01/29/20 21:32 01/29/20 21:32 Laboratory results interpreted by me: 01/29/20 01/29/20 01/29/20 21:32 21:32 21:32 RDW 14.8 H Glucose 113 H Calcium 10.4 H Alkaline Phosphatase 129 H NT-Pro-B Natriuret Pep 154 H Critical Care Note - Critical Care Note Total time excluding time spent on procedures (mins): 90 Comments: bp wnl during er stay Discharge - Discharge Clinical Impression: Chest pain at rest Hypertension Qualifiers: Hypertension type: unspecified Qualified Code(s): I10 - Essential (primary) hypertension Condition: Good Disposition: HOME, SELF-CARE Additional Instructions: Follow-up with Dr. Hunter security intern call his office today and return to ER if symptoms persist take your medicines as directed and encourage fluids
--- NOTE | 2020-01-29 20:52 | EKG REPORT ---
SEVERITY:- ABNORMAL ECG - SINUS RHYTHM PROBABLE LEFT VENTRICULAR HYPERTROPHY NONSPECIFIC T ABNORMALITIES, INFERIOR LEADS : Confirmed by: Den Regan MD 29-Jan-2020 20:50:37
[2020-01-29 21:48] LABS: ABSOLUTE BASOPHILS # (AUTO) 0.1 10^3/uL (0.0-0.2); ABSOLUTE EOSINOPHILS # (AUTO) 0.3 10^3/uL (0.0-0.6); ABSOLUTE LYMPHOCYTES (AUTO) 2.2 10^3/uL (0.5-4.7); ABSOLUTE MONOCYTES (AUTO) 0.6 10^3/uL (0.1-1.4); ABSOLUTE NEUT (AUTO) 6.8 10^3/uL (1.7-8.2); BASOPHILS % (AUTO) 0.8 % (0-2); EOSINOPHILS % (AUTO) 2.8 % (0-6); HEMATOCRIT 36.8 % (36.0-47.0); HEMOGLOBIN 12.4 g/dL (12.0-15.5); LYMPHOCYTES % (AUTO) 22.3 % (13-45); MEAN CORPUSCULAR HEMOGLOBIN 31.8 pg (27.0-33.4); MEAN CORPUSCULAR HGB CONC 33.6 g/dL (32.0-36.0); MEAN CORPUSCULAR VOLUME 95 fl (80-97); MONOCYTES % (AUTO) 5.8 % (3-13); PLATELET COUNT 265 10^3/uL (150-450); RED CELL DISTRIBUTION WIDTH 14.8 % (11.5-14.0); SEGMENTED NEUTROPHILS % (AUTO) 68.3 % (42-78); TOTAL CELLS COUNTED % (AUTO) 100 %; WHITE BLOOD COUNT 9.9 10^3/uL (4.0-10.5)
[2020-01-29 22:06] LABS: ALBUMIN 4.1 g/dL (3.5-5.0); ALKALINE PHOSPHATASE 129 U/L (38-126); ANION GAP 8 (5-19); ASPARTATE AMINO TRANSFERASE 22 U/L (14-36); BILIRUBIN,TOTAL 0.7 mg/dL (0.2-1.3); BLOOD UREA NITROGEN 13 mg/dL (7-20); CALCIUM 10.4 mg/dL (8.4-10.2); CARBON DIOXIDE 26 mmol/L (22-30); CHLORIDE 104 mmol/L (98-107); GLUCOSE 113 mg/dL (75-110); POTASSIUM 4.4 mmol/L (3.6-5.0); TOTAL PROTEIN 7.8 g/dL (6.3-8.2)
[2020-01-29 22:18] LABS: NT PRO BNP 154 pg/mL (<125); TROPONIN I < 0.012 ng/mL
[2020-01-30 02:13] VITALS: BP 145/69
== END 2020-01-30 02:24 | disposition home or self-care (01) ==
LOC: ER 18:54
DX: R07.9 Chest pain, unspecified (principal); I10 Essential (primary) hypertension; R42 Dizziness and giddiness; M25.512 Pain in left shoulder; E11.9 Type 2 diabetes mellitus without complications; E78.00 Pure hypercholesterolemia, unspecified; I25.2 Old myocardial infarction; Z90.49 Acquired absence of other specified parts of digestive tract; Z90.710 Acquired absence of both cervix and uterus
CPT/HCPCS: 36415; 71046; 80053; 83880; 84484; 85025; 93005; 93010; 99285